=== PATIENT | female | born 1940 | race Caucasian/White ===

== ENCOUNTER 2016-06-01 07:11 | Observation (INO) | payer OTHER ==
[2016-05-18 15:15] VITALS: BMI 35.0
[~2016-06-01] VITALS: Ht 152.4 cm; Wt 86.4 kg
[2016-06-01] VITALS (7 sets, daily range): BP systolic 93–133; BP diastolic 60–86; PULSE 55–107; TEMP 36.4–36.7; O2SAT 95–97; Ht 152.4 cm; Wt 86.4 kg
[~2016-06-01 07:11] MED LIST: ASPI325T39 PO; CLINDAMYCIN 600 MG/54 ML D5W IV SCH; DEXL60CA4 PO; LACTATED RINGER'S 1000ML 1,000 ML IV SCH; OXYB5TAB74 PO; PREGABALIN 75 MG CAP PO SCH; SERT25TA PO
[2016-06-01] MEDS ORDERED: ONDANSETRON INJ 2 MG/ML 2 ML VIAL ONE (08:30)
[2016-06-01] MEDS ORDERED: ROCURONIUM BROMIDE 10 MG/ML 5 ML VIAL ONE (08:30)
[2016-06-01] MEDS ORDERED: GLYCOPYRROLATE INJ 0.2 MG/ML VIAL ONE (08:30)
[2016-06-01] MEDS ORDERED: NEOSTIGMINE METHYLSULFATE 5 MG/5 ML SYR ONE (08:30)
[2016-06-01] MEDS ORDERED: LIDOCAINE HCL 2% 2 ML VIAL (20MG/ML) ONE (08:30)
[2016-06-01] MEDS ORDERED: PROPOFOL IV EMULSION 10 MG/ML 20 ML VIAL IV ONE (08:30)
[2016-06-01] MEDS ORDERED: DEXAMETHASONE SOD INJ 4 MG/ML VIAL ONE (08:30)
[2016-06-01] MEDS ORDERED: FENTANYL CITRATE INJ 50 MCG/1 ML 2 ML VIAL ONE (08:30)
[2016-06-01] MEDS ORDERED: MIDAZOLAM HCL 1 MG/ML 2ML VIAL ONE (08:30)
[2016-06-01] MEDS ORDERED: METOPROLOL TARTRATE 1 MG/ML VIAL ONE ×2 (08:40→08:41)
[2016-06-01] MEDS ORDERED: NURSING VERBAL MED ORDER ONE ×3 (08:46→18:30)
--- NOTE | 2016-06-01 09:03 | Anesthesiology Progress Note ---
Anesthesia Progress Note Date of Service Jun 01, 2016. Progress Notes The patient is a 76F, who was coming in for a L4-S1 decompression/fusion with Dr. Carr. Upon admission, it was noted that patient was tachycardic on the monitor. A 12 lead EKG was ordered which showed afib with RVR at a rate of 144 bpm. The pt is asymptomatic denying CP, SOB, or lightheadedness. I spoke with Dr. Carr and informed him that the procedure would need to be postponed. I spoke with Dr. Cullen and Dr. Arreguin in regards to the patient. The patient will be admitted to the hospital, and her atrial fibrillation will be addressed. I spoke with the patient and her family concerning the matter, and they were understanding.
[2016-06-01] MEDS ORDERED: METOPROLOL TARTRATE 25 MG TAB ONE (09:14)
[2016-06-01] MEDS ORDERED: ACETAMINOPHEN 325 MG TAB PO PRN (09:30)
[2016-06-01] MEDS ORDERED: METOPROLOL TARTRATE 1 MG/ML VIAL IV PRN (09:30)
[2016-06-01] MEDS ORDERED: ONDANSETRON INJ 2 MG/ML 2 ML VIAL IV PRN (09:30)
[2016-06-01] MEDS ORDERED: NITROGLYCERIN 0.4 MG SL PER TAB CHARGE SL PRN (09:30)
[2016-06-01] MEDS ORDERED: SODIUM CHLORIDE 0.9% 1000ML 1,000 ML IV SCH (09:30)
[2016-06-01] MEDS ORDERED: METOPROLOL TARTRATE 25 MG TAB PO ONE (10:00)
[2016-06-01] MEDS ORDERED: IV FLUIDS COMPLETED PRN (10:00)
[2016-06-01 10:18] LABS: BASO % 0.4 %; BASO ABS # 0.03 K/uL (0-0.2); COMPLETE YES; EOS % 1.5 %; HEMATOCRIT 41.5 % (37-47); IG% 0.1 %; LYMPH ABS # 2.69 K/uL (1.2-3.4); MEAN CELL VOLUME 87.2 fL (80-100); MEAN CORPUSCULAR HEMOGLOBIN 29.2 pg (25-34); MEAN CORPUSCULAR HGB CONC 33.5 g/dl (32-36); MEAN PLATELET VOLUME 11.7 fL (7.4-10.4); MONO % 10.9 %; NEUT % 48.1 %; PLATELET COUNT 206 K/uL (130-400); RED BLOOD COUNT 4.76 M/uL (4.2-5.4); WHITE BLOOD COUNT 6.89 K/uL (4.8-10.8)
--- NOTE | 2016-06-01 10:18 | DIAGNOSTIC IMAGING REPORT ---
CHEST ONE VIEW PORTABLE HISTORY: Atrial fibrillation. COMPARISON: None. FINDINGS: There are low lung volumes. The cardiac silhouette is mildly enlarged. Diffuse interstitial and vascular thickening consistent with mild pulmonary edema. No pleural effusions at this time. No pneumothorax. IMPRESSION: Mild pulmonary edema with mild cardiomegaly. Electronically signed by: Geovani Roldan M.D. 06/01/2016 10:16 AM Dictated Date/Time: 06/01/2016 10:15 AM
--- NOTE | 2016-06-01 10:23 | CARDIOLOGY CONSULTATION ---
DATE OF CONSULTATION: 06/01/2016 DATE OF CONSULTATION: 06/01/2016. CONSULTING PHYSICIAN: Dr. Richardson Giron. REASON FOR CONSULTATION: Atrial fibrillation with rapid ventricular response. HISTORY OF PRESENT ILLNESS: is a very pleasant 76-year-old female with a history significant for paroxysmal atrial fibrillation diagnosed in 2010, who presented for outpatient elective spinal stenosis surgery scheduled with Dr. Carr. While in the preoperative holding area she was noted to be in atrial fibrillation with rapid ventricular response. She was completely asymptomatic. She states that in 2010, she woke up in the middle of the night with jaw pain, diaphoresis and went to the Emergency Department and was found to be in Afib with RVR. She was given some type of medication and stayed overnight at [facility]. She converted without electrical cardioversion and had a stress test before discharge. She states that these studies were normal and she has not followed with cardiology since then. She was placed on aspirin at that time. She had a preoperative ECG done earlier this month which demonstrated sinus rhythm. Other than feeling anxious all night with very little sleep in anticipation of her surgery, she has not had any other symptoms such as palpitations, chest pain, shortness of breath, syncope, near syncope, diaphoresis, fevers, chills, abdominal pain, nausea, vomiting, or bleeding such as melena, hematochezia or hematuria. She is completely unaware of her current heart rate or arrhythmia. Her symptoms from spinal stenosis include radiculopathy. It is difficult for her to ambulate in her own home and it is negatively impacting her quality of life. She had an echocardiogram done in 2010, but does not recall having one since then. She does not take any rate controlling medications or antihypertensive medications as she has no history of hypertension according to records. REVIEW OF SYSTEMS: As above and review of systems otherwise negative. PAST MEDICAL HISTORY: 1. Paroxysmal atrial fibrillation in 2010. 2. Depression. 3. Acid reflux. 4. Osteoporosis. 5. Gastric ulcer. 6. Spinal stenosis with radiculopathy. 7. Osteoarthritis. 8. Status post hysterectomy. 9. Status post bladder mesh surgery. 10. Left carpal tunnel release. 11. Left foot surgery x3. 12. Right shoulder surgery, rotator cuff repair. 13. Colonoscopy. 14. Rectocele repair 2008 with mesh and then later removed. 15. . 16. Laparoscopic cholecystectomy. 17. D\T\C. 18. Status post appendectomy during . INPATIENT MEDICATIONS: Include aspirin 325 mg daily, Aleve 220 mg twice daily, Dexilant 60 mg daily, oxybutynin, sertraline 25 mg daily. ALLERGIES: INCLUDE IODINE, KERATIN, PENICILLIN, SULFA, THERE IS ALSO AN INTOLERANCE TO HIGH DOSE NEURONTIN. One record also indicates Lipitor, however she did not state this. SOCIAL HISTORY: Denies tobacco or drug abuse. Rare alcohol. She is a x2. She had 4 children, but 2 of her children have since . Her son and daughter are present at the bedside. She does have grandchildren. She lives alone in [place]. FAMILY HISTORY: There is premature CAD, including her son who with an NV under the age of 55. She also has a sister with NV. Father had cardiovascular disease. Mother had cancer. PHYSICAL EXAMINATION: VITAL SIGNS: Temperature 36.7 degrees, heart rate in the 130s, respiration rate 18, blood pressure 107/65 mmHg, oxygen saturation 94% on room air. GENERAL: In no acute distress, alert and oriented. HEAD, EYES, EARS, NOSE, AND THROAT: Anicteric sclerae. NECK: No appreciable JVD. No bruits. Normal carotid upstrokes bilaterally. CARDIAC EXAMINATION: PMI was nonpalpable. There was no ventricular heave. Irregularly irregular and tachycardic. Normal S1, S2. No audible murmurs, rubs or gallops. LUNGS: Rales at the right base, otherwise clear. ABDOMEN: Soft, nontender, nondistended, normoactive bowel sounds, no bruits noted. EXTREMITIES: No cyanosis or edema. 2+ radial pulses bilaterally. 1+ dorsalis pedis pulses bilaterally. No palpable cords. PSYCHIATRIC: Affect appears appropriate. INPATIENT MEDICATIONS that she has received thus far metoprolol 2.5 mg IV according to nursing staff. Chest x-ray preliminarily personally reviewed. There did appear to be increased vasculature. No obvious infiltrate. The radiology read is pending. LABORATORY DATA: Pending. ECG personally reviewed performed earlier today demonstrating atrial fibrillation at 144 beats per minute. PVC versus aberrantly conducted complex. Nonspecific ST/T-wave abnormality. Preoperative ECG was also personally reviewed from 05/16/2016. This demonstrates normal sinus rhythm at 65 beats per minute. Possible LVH. ASSESSMENT AND PLAN: 1. Atrial fibrillation with rapid ventricular response: She is completely asymptomatic. Recommend 25 mg p.o. metoprolol now and then b.i.d. This can be titrated as appropriate. Recommend IV metoprolol 5 mg now to see if we have adequate rate control response. If beta rand does not adequately rate control, would then consider diltiazem drip while titrating oral beta rand. We had a long discussion regarding atrial fibrillation and treatment strategies. We will first attempt to rate control strategy. She may spontaneously convert as she has in the past. Recommend echocardiogram, TSH, magnesium level, potassium level, CBC and other routine labs. Recommend anticoagulation for stroke risk reduction as she does have an elevated CHADS-VASc score. Risks and benefits of anticoagulation were discussed with her. Would use heparin drip while hospitalized. She can then decide on other anticoagulation upon discharge following echocardiogram, although there are no findings on exam to suggest significant valvular heart disease. 2. Spinal stenosis: Recommend heparin drip while hospitalized. If she spontaneously converts or becomes rate controlled and there is availability during hospitalization for her surgery, it then could be done if Dr. Carr's schedule allows for this. Otherwise, would discharge on anticoagulation, which would have to be held for upcoming spinal stenosis surgery. 3. Disposition: Plan of care has been discussed with Stephany Snowden PA-C of the hospitalist service who is currently doing the admission. Any questions were answered. The patient's care was also discussed with Dr. Giron, the consulting physician. Thank for allowing me to participate in care of Ms. Afshan Lynch.
[2016-06-01 10:26] LABS: PARTIAL THROMBOPLASTIN RATIO 1.1; PROTHROMBIN TIME (PATIENT) 10.7 SECONDS (9.0-12.0)
[2016-06-01 11:00] LABS: BUN/CREATININE RATIO 28.2 (10-20); CALCIUM 9.1 mg/dl (8.5-10.1); CREATININE 0.79 mg/dl (0.60-1.20); MAGNESIUM 2.3 mg/dl (1.8-2.4); POTASSIUM 3.7 mmol/L (3.5-5.1)
[2016-06-01 11:11] LABS: THYROID STIMULATING HORMONE 0.945 uIu/ml (0.300-4.500)
--- NOTE | 2016-06-01 11:16 | History and Physical ---
History & Physical Date & Time of Service: Jun 01, 2016 at 10:58 Chief Complaint: Spinal Stenosis Primary Care Physician: Roshan Tello D.O. History of Present Illness Source: patient, family, other This patient is a pleasant 76-year-old female that presents to the hospital this morning to undergo a spinal fusion with Dr. Carr. During her preoperative testing, the patient was noted to be in A. fib with rapid ventricular response in the 140s. Blood pressure was fairly stable. The patient does note that she has a history of paroxysmal atrial fibrillation. This was first noticed in 2010. She typically takes aspirin 325 mg daily. She denies being on any other long-standing anticoagulation. She denies being symptomatic from her current heart arrhythmia. She denies any heart palpitations. No heart racing, chest pain, chest pressure, shortness of breath or dizziness. She does note that she felt very anxious and did not sleep well last night. She denies any recent illnesses. She reports eating and drinking normally over the last several days. No GI illnesses. She denies any significant caffeine use, alcohol use or tobacco use. Past Medical/Surgical History Paroxysmal A. fib Depression GERD Gastric ulcer Status post bladder mesh surgery History of right rotator cuff surgery History of History of cholecystectomy History of appendectomy Family History Patient had a son that in his 40s from an CO Sister in her 70s of an CO Father of coronary disease Social History Smoking Status: Never Smoker Alcohol Use: none Marital Status: Housing status: lives alone Occupational Status: retired Allergies Coded Allergies: Penicillins (Verified Allergy, Mild, RASH, 06/01/16) Sulfa Antibiotics (Verified Allergy, Mild, RED RASH, 06/01/16) Iodine (Unverified Allergy, Unknown, unknown, 06/01/16) per surgeon's allergy list; please verify with pt Gabapentin (Verified Adverse Reaction, Mild, CONFUSION, 06/01/16) Home Medications Scheduled Aspirin (Aspirin Ec), 325 MG PO QAM Dexlansoprazole (Dexilant), 60 MG PO QAM Oxybutynin Chloride (Ditropan), 5 MG PO QAM Sertraline Hcl (Zoloft), 25 MG PO QAM Review of Systems 10 system review performed and negative unless noted in HPI or below Physical Exam Vital Signs Date Time Temp Pulse Resp B/P Pulse Ox O2 Delivery O2 Flow Rate FiO2 1/25/17 09:57 127 20 97/59 94 Room Air 06/01/16 09:56 114 16 96/80 95 Room Air 06/01/16 09:45 120 18 77/53 96 Room Air 06/01/16 09:35 139 18 126/84 95 Room Air 06/01/16 09:25 115 18 130/87 95 Room Air 06/01/16 09:15 159 18 117/101 96 Room Air 06/01/16 09:05 94 18 107/65 94 Room Air 06/01/16 08:55 132 16 124/73 95 Room Air 06/01/16 08:50 117 14 99/62 94 Room Air 06/01/16 08:46 126 16 94/59 94 Room Air 06/01/16 08:41 152 16 111/81 95 Room Air 06/01/16 08:00 36.7 106 20 133/84 96 Room Air General Appearance: no apparent distress Head: atraumatic Eyes: EOMI Neck: no JVD Respiratory/Chest: lungs clear Cardiovascular: + tachycardia, + irregularly irregular Abdomen/GI: normal bowel sounds, non tender, soft Extremities/Musculoskelatal: no calf tenderness, no pedal edema Neurologic/Psych: no motor/sensory deficits, oriented x 3 Diagnostics Laboratory Results Results Past 24 Hours Test 06/01/16 09:23 06/01/16 09:54 Range/Units White Blood Count 6.89 4.8-10.8 K/uL Red Blood Count 4.76 4.2-5.4 M/uL Hemoglobin 13.9 12.0-16.0 g/dL Hematocrit 41.5 37-47 % Mean Corpuscular Volume 87.2 80-100 fL Mean Corpuscular Hemoglobin 29.2 25-34 pg Mean Corpuscular Hemoglobin Concent 33.5 32-36 g/dl Platelet Count 206 130-400 K/uL Mean Platelet Volume 11.7 7.4-10.4 fL Neutrophils (%) (Auto) 48.1 % Lymphocytes (%) (Auto) 39.0 % Monocytes (%) (Auto) 10.9 % Eosinophils (%) (Auto) 1.5 % Basophils (%) (Auto) 0.4 % Neutrophils # (Auto) 3.31 1.4-6.5 K/uL Lymphocytes # (Auto) 2.69 1.2-3.4 K/uL Monocytes # (Auto) 0.75 0.11-0.59 K/uL Eosinophils # (Auto) 0.10 0-0.5 K/uL Basophils # (Auto) 0.03 0-0.2 K/uL RDW Standard Deviation 46.2 36.4-46.3 fL RDW Coefficient of Variation 14.4 11.5-14.5 % Immature Granulocyte % (Auto) 0.1 % Immature Granulocyte # (Auto) 0.01 0.00-0.02 K/uL Prothrombin Time 10.7 9.0-12.0 SECONDS Prothromb Time International Ratio 1.0 0.9-1.1 Activated Partial Thromboplast Time 28.6 21.0-31.0 SECONDS Partial Thromboplastin Ratio 1.1 EKG Atrial fibrillation with RVR [address] depression noted in the inferior/anterior leads Impression Assessment and Plan 76-year-old female with a history of paroxysmal A. fib presented to the hospital today with anticipation of her spinal fusion. Unfortunately, she was found to be in A. fib with RVR-asymptomatic Atrial fibrillation with RVR -Observe in telemetry -try metoprolol 5 mg IV q 6 hrs for HR> 90--> if poor response, consider starting a Cardizem drip -Check echo -Trend cardiac enzymes -Gentle IV hydration with NS @ 80 cc/hr x 1 liter -CBC, CMP, TSH, mag, coags -CXR -begin heparin drip -Recommend long-term anticoagulation. This may be held for now with the hopes that the patient can still undergo spinal surgery if we get her rate under control -cardiology consult -ortho will be made aware GERD/hx gastric ulcer -Pantoprazole 40 mg daily while in-house -Upon discharge, please resume patient's outpatient's Dexilant -monitor closely for signs of GIB when we start correction AC--no NSAIDS Depression -Continue sertraline 25 mg daily History of urge incontinence -Continue Ditropan 5 mg daily DVT prophylaxis -Heparin -TEDS, SCDs CODE STATUS -LEVEL I FULL CODE I agree with PA assessment and plan and have seen and examined the pt myself Pt presented for lumbar spinal fusion but found to be in Afib with RVR Asymptomatic at this time Will utilize metoprolol and hep drip Advanced Directives Existing Advance Directive: Yes Existing Living Will: Yes Existing Power of Violin Repairer: Yes VTE Prophylaxis VTE Risk Assessment Done? Y/N: Yes Risk Level: Moderate Given or contraindicated: Other Anticoagulation, T.E.D. Stockings, SCD's
[2016-06-01] MEDS ORDERED: PERFLUTREN LIPID MICROSPHERE (DEFINITY) IV ONE (12:25)
[2016-06-01] MEDS ORDERED: HEPARIN 25,000 UNIT/500ML D5W 500 ML IV PRN (12:30)
[2016-06-01] MEDS ORDERED: METOPROLOL TARTRATE 50 MG TAB PO ONE (16:00)
[2016-06-01 19:36] LABS: PARTIAL THROMBOPLASTIN RATIO 1.7
[2016-06-01] MEDS: METOPROLOL TARTRATE 25 MG TAB PO SCH (20:28)
[2016-06-01 20:43] LABS: URINE APPEARANCE CLEAR (CLEAR); URINE BILIRUBIN NEG (NEG); URINE COLOR YELLOW; URINE NITRITE NEG (NEG); URINE SPECIFIC GRAVITY 1.027 (1.000-1.030); UROBILINOGEN NEG (NEG)
[2016-06-01 20:44] LABS: MANUAL MICROSCOPIC REQUIRED? NO; REVIEW REQ? NO
[2016-06-01] MEDS ORDERED: HEPARIN IV BOLUS 2,000 UNIT in SYRINGE 0 ML IV ONE (20:45)
[2016-06-01] MEDS ORDERED: METOPROLOL TARTRATE 50 MG TAB PO SCH (22:00)
[2016-06-02 02:53] LABS: PARTIAL THROMBOPLASTIN RATIO 2.9
[2016-06-02 03:59] VITALS: BP 100/65; PULSE 58; TEMP 36.5; O2SAT 95
[2016-06-02 06:45] LABS: BASO % 0.4 %; BASO ABS # 0.03 K/uL (0-0.2); COMPLETE YES; EOS % 3.1 %; HEMATOCRIT 36.3 % (37-47); IG% 0.3 %; LYMPH ABS # 3.15 K/uL (1.2-3.4); MEAN CELL VOLUME 88.5 fL (80-100); MEAN CORPUSCULAR HEMOGLOBIN 28.8 pg (25-34); MEAN CORPUSCULAR HGB CONC 32.5 g/dl (32-36); MEAN PLATELET VOLUME 11.5 fL (7.4-10.4); MONO % 9.9 %; NEUT % 42.3 %; PLATELET COUNT 183 K/uL (130-400); WHITE BLOOD COUNT 7.16 K/uL (4.8-10.8)
[2016-06-02 07:00] LABS: PARTIAL THROMBOPLASTIN RATIO 2.5
[2016-06-02 07:11] LABS: CALCIUM 8.3 mg/dl (8.5-10.1); CREATININE 0.84 mg/dl (0.60-1.20); POTASSIUM 3.6 mmol/L (3.5-5.1)
[2016-06-02 07:28] VITALS: BP 100/61; PULSE 55; TEMP 36.7; O2SAT 93
[2016-06-02] MEDS: METOPROLOL TARTRATE 25 MG TAB PO SCH (07:53)
[2016-06-02 07:54] VITALS: PULSE 62
[2016-06-02] MEDS ORDERED: SERTRALINE HCL 50 MG TAB PO SCH (09:00)
[2016-06-02] MEDS ORDERED: OXYBUTYNIN CHLORIDE 5 MG TAB PO SCH (09:00)
[2016-06-02] MEDS ORDERED: PANTOprazole SOD 40 MG TAB PO SCH (09:00)
--- NOTE | 2016-06-02 09:41 | CARDIOLOGY PROGRESS NOTE ---
DATE: 06/02/2016 TIME: 9:21 a.m. SUBJECTIVE: She denies chest pain, shortness of breath, syncope, near syncope, palpitations. She converted to sinus rhythm yesterday evening. She is tolerating beta rand therapy. OBJECTIVE: VITAL SIGNS: Temperature 36.7 degrees, heart rate 62 beats per minute, respiration rate 18, blood pressure 100/61 mmHg, oxygen saturation 93% on room air. I's and O's positive 1.27 liters yesterday. Weight is 86.4 kg. GENERAL: No acute distress. She is alert. NECK: No JVD. CARDIAC: No ventricular heave. Regular, normal S1, S2. No murmurs, rubs, or gallops. LUNGS: Bibasilar rales which do improve with coughing. ABDOMEN: Soft, nontender, nondistended. Normoactive bowel sounds. EXTREMITIES: No cyanosis, no pitting edema. Distal pulses intact. PSYCHIATRIC: Affect appears appropriate. MEDICATIONS: Include heparin drip per protocol, metoprolol tartrate 25 mg twice daily, Protonix 40 mg daily, Zoloft 25 mg daily. Echocardiogram images yesterday were personally reviewed. Normal LV systolic function. No significant valvular abnormalities. IMAGING DATA: Chest x-ray report from yesterday per radiology diffuse interstitial and vascular thickening. DATA: White blood cell count 7.16, hemoglobin 11.8, platelets 183, sodium 145, potassium 3.6, BUN 22, creatinine 0.8, magnesium 2. TSH 0.945. PTT 63.8. Telemetry personally reviewed. Remains in sinus rhythm. ECG performed this morning at 6:39 a.m. personally reviewed. Sinus bradycardia at 56 beats per minute. Possible LVH by voltage criteria. Compared to yesterday's ECG, sinus rhythm has replaced AFib with RVR. Heart rate has decreased by 88 beats per minute. ASSESSMENT AND PLAN: 1. Paroxysmal atrial fibrillation with rapid ventricular response: She was asymptomatic and has spontaneously converted. We would continue metoprolol tartrate 25 mg twice daily for rate control strategy. If she has frequent recurrent episodes, would consider antiarrhythmic therapy. She does have an elevated stroke risk and therefore recommend anticoagulation. This was discussed with primary service, SHARAD Sauceda. Caseworkers can look into her insurance company to see affordable option. If her spinal surgery is going to occur in the next few days, may want to delay anticoagulation until following surgery depending on the timing of surgery as any anticoagulant also need to be held for the surgery. 2. Rales on exam: Etiology uncertain. She does not appear to be hypervolemic. She does not appear to be in heart failure. She does have interstitial findings on chest x-ray. This can be followed up as an outpatient with her PCP. 3. Spinal stenosis: Timing of surgery is still pending. Plan as above. We would recommend remaining on her beta rand therapy and during the perioperative period, including the day of surgery. Obviously, anticoagulation therapy can be held in anticipation of surgery and restarted when safe from a surgical standpoint. 4. Disposition: From a cardiac perspective, no further testing or treatment necessary as an inpatient. It was recommended to the primary service and also the patient that she followup with cardiology as an outpatient. She does live quite a distance from the [facility] and has seen cardiology in the past in her local area. It was recommended that she followup. Plan of care discussed with Stephany Snowden of the hospitalist service. Thank you for allowing us to participate in care of Ms. Lynch.
[2016-06-02 09:55] LABS: PARTIAL THROMBOPLASTIN RATIO 2.2
[2016-06-02 11:22] VITALS: BP_SYST 100; BP_SYST 97; BP_DIAS 54; BP_DIAS 61; PULSE 53; PULSE 55; TEMP 36.5; TEMP 36.7; O2SAT 93; O2SAT 96
[2016-06-02] MEDS ORDERED: ELQ25 PO (14:09)
[2016-06-02] MEDS ORDERED: LPR25 PO (14:09)
--- NOTE | 2016-06-02 14:13 | Discharge Instructions ---
Discharge Instructions Admission Reason for Admission: Spinal Stenosis Discharge Discharge Diagnosis / Problem: Atrial fibrillation with RVR Discharge Goals Goal(s): Decrease discomfort, Improve function, Increase independence, Improve disease control Activity Recommendations Activity Limitations: resume your previous activity Shower/Bathe: no limitations . Instructions / Follow-Up Instructions / Follow-Up patient to be discharged home patient to start on metoprolol 25 mg twice a day and eliquis 2.5 twice a day please do not start taking eliquis or aspirin until cleared from surgery Current Hospital Diet Patient's current hospital diet: AHA Diet (Heart Healthy) Discharge Diet Recommended Diet: AHA Diet (Heart Healthy) Pending Studies Studies pending at discharge: no Medical Emergencies . Who to Call and When: Medical Emergencies: If at any time you feel your situation is an emergency, please call 911 immediately. . Non-Emergent Contact Non-Emergency issues call your: Primary Care Provider Call Non-Emergent contact if: you have a fever . . "Provider Documentation" section prepared by Michael Gauthier. VTE Core Measure Inpt VTE Proph given/why not?: Other Anticoagulation, T.E.D. Stockings, SCD's
--- NOTE | 2016-06-02 14:27 | ECHOCARDIOGRAM REPORT ---
*NOTICE TO RECEIVING [employer] This information is strictly Confidential and protected under [place] law. [place] law prohibits you from making any further disclosure of this information unless further disclosure is expressly permitted by the written consent of the person to whom it pertains or is authorized by law. A general authorization for the release of medical or other information is not sufficient for this purpose. Hospital accepts no responsibility if the information is made available to any other person, INCLUDING THE PATIENT. Interpretation Summary * Name: ABHISHEK REGALADO Study Date: 06/01/2016 12:45 PM BP: 111/71 mmHg * Patient Location: [facility] HR: 125 * : 1940 (M/d/yyyy) Gender: Female Height: 60 in * Age: 76 yrs Ethnicity: CA Weight: 180 lb * Ordering Physician: Stephany Snowden * Performed By: Neva Perales RCS * * Reason For Study: A-FIB * BSA: 1.8 m2 * -- Conclusions -- * 1. Normal left ventricular size and systolic function. Estimated EF 55-60%. No regional wall motion abnormalities. Mild to moderate concentric left ventricular hypertrophy. * 2. The left atrium is mildly dilated. * 3. No significant valvular abnormalities. * 4. Rhythm is atrial fibrillation with rapid ventricular response. * 5. Technically difficult study, enhanced with IV Definity. * 6. No prior study available for comparison. Procedure Details * A complete two-dimensional transthoracic echocardiogram was performed (2D, M-mode, Doppler and color flow Doppler). * A contrast injection of Definity was performed to improve assessment of LV function. * Contrast was injected into an intravenous site in the left arm. * One vial of Definity ultrasound contrast was diluted in normal saline to a total volume of 10 ml. A total of '2' ml of solution was administered during imaging. * Lot # [id number] of Definity utilized for procedure. * Expiration date 1 APR 23. Left Ventricle * Normal left ventricular size and systolic function. Estimated EF 55-60%. No regional wall motion abnormalities. Mild to moderate concentric left ventricular hypertrophy. Right Ventricle * The right ventricle is grossly normal size. * The right ventricle is not well visualized. * The right ventricular systolic function is normal. * The right ventricular systolic function is normal as assessed by tricuspid annular plane systolic excursion (TAPSE) (normal >1.5 cm). Atria * The left atrium is mildly dilated. * Right atrium not well visualized. * There is no evidence of atrial septal defect, but resolution does not allow assessment for a patent foramen ovale. Mitral Valve * The mitral valve is grossly normal. * There is no mitral valve stenosis. * There is trace mitral regurgitation. Tricuspid Valve * The tricuspid valve is not well visualized. * There is no tricuspid stenosis. * There is mild tricuspid regurgitation. Aortic Valve * The aortic valve is trileaflet. * The aortic valve is normal in structure and function. * No hemodynamically significant valvular aortic stenosis. * There is no significant aortic regurgitation. Pulmonic Valve * The pulmonary valve is inadequately visualized, but the Doppler data is adequate for interpretation. * There is no pulmonic valvular stenosis. * There is no significant pulmonary regurgitation. Great Vessels * The aortic root is normal size. * Aortic arch of normal dimension. Pericardium/Pleural * There is no pericardial effusion. Great Vessels * IVC not well visualized. MMode 2D Measurements and Calculations IVSd 1.4 cm IVSs 1.5 cm LVIDd 3.4 cm LVIDs 2.2 cm LVPWd 1.3 cm LVPWs 1.5 cm IVS/LVPW 1.1 FS 35.6 % EDV(Teich) 46.5 ml ESV(Teich) 15.7 ml EF(Teich) 66.3 % EDV(cubed) 38.3 ml ESV(cubed) 10.2 ml EF(cubed) 73.3 % % IVS thick 12.9 % % LVPW thick 14.7 % LV mass(C)d 149.7 grams LV mass(C)dI 83.9 grams/m\S\2 LV mass(C)s 107.6 grams LV mass(C)sI 60.3 grams/m\S\2 SV(Teich) 30.8 ml SI(Teich) 17.3 ml/m\S\2 SV(cubed) 28.1 ml SI(cubed) 15.7 ml/m\S\2 Ao root diam 3.6 cm Ao root area 9.9 cm\S\2 ACS 1.8 cm LA dimension 3.7 cm LA/Ao 1.1 LVOT diam 1.9 cm LVOT area 3.0 cm\S\2 LVAd ap4 25.1 cm\S\2 LVLd ap4 6.9 cm EDV(MOD-sp4) 75.2 ml EDV(sp4-el) 77.7 ml LVAd ap2 24.3 cm\S\2 LVLd ap2 7.0 cm EDV(MOD-sp2) 71.3 ml EDV(sp2-el) 71.4 ml LVAs ap2 14.7 cm\S\2 LVLs ap2 5.8 cm ESV(MOD-sp2) 33.2 ml ESV(sp2-el) 32.0 ml EF(MOD-sp2) 53.4 % EF(sp2-el) 55.2 % LVLd %diff 2.0 % EDV(MOD-bp) 73.3 ml SV(MOD-sp2) 38.1 ml SI(MOD-sp2) 21.3 ml/m\S\2 SV(sp2-el) 39.4 ml SI(sp2-el) 22.1 ml/m\S\2 Doppler Measurements and Calculations MV E max yue 78.7 cm/sec MV P1/2t max yue 113.0 cm/sec MV P1/2t 25.8 msec MVA(P1/2t) 8.5 cm\S\2 MV dec slope 1284.6 cm/sec\S\2 MV dec time 0.13 sec Ao V2 max 84.7 cm/sec Ao max PG 2.9 mmHg Ao max PG (full) 1.5 mmHg TEMO(V,A) 2.0 cm\S\2 TEMO(V,D) 2.0 cm\S\2 LV V1 max PG 1.4 mmHg LV V1 max 58.2 cm/sec TR max yue 228.3 cm/sec
[2016-06-02 14:39] VITALS: BP 97/54; PULSE 53; TEMP 36.5; O2SAT 96
--- NOTE | 2016-06-02 15:27 | Discharge Summary ---
Discharge Summary Admission Date: Jun 01, 2016 at 09:29 Discharge Date: Jun 02, 2016 Discharge Disposition: Home Principal Diagnosis: Atrial fibrillation with RVR Consultations: Cardiology Medication Reconciliation New Medications: Apixaban (Eliquis) 2.5 Mg Tab 2.5 MG PO BID for 30 Days, #60 TABS Please dont start taking until cleared from surgery Metoprolol Tartrate (Lopressor) 25 Mg Tab 25 MG PO BID for 30 Days, #60 TAB Continued Medications: Dexlansoprazole (Dexilant) 60 Mg Cap 60 MG PO QAM Oxybutynin Chloride (Ditropan) 5 Mg Tab 5 MG PO QAM, TAB Sertraline Hcl (Zoloft) 25 Mg Tab 25 MG PO QAM for Anxiety, TAB Discontinued Medications: Aspirin (Aspirin Ec) 325 Mg Tab 325 MG PO QAM HOLD 7 DAYS Discharge Exam Review of Systems: Constitutional: No chills, No fever Respiratory: No cough, No sputum Cardiovascular: No chest pain, No orthopnea Abdomen: No nausea, No pain, No vomiting Musculoskeletal: No joint pain, No muscle pain Genitourinary - Female: No dysuria, No urinary frequency Neurologic: No paralysis, No weakness Physical Exam: General Appearance: WD/WN, no apparent distress Eyes: normal inspection, PERRL Neck: supple, no adenopathy Respiratory/Chest: chest non-tender, lungs clear Cardiovascular: regular rate, rhythm, no edema, no gallop Abdomen / GI: non tender, soft Neurologic/Psychiatric: alert, oriented x 3 Hospital Course 76-year-old female with a history of paroxysmal A. fib presented to the hospital today with anticipation of her spinal fusion. Unfortunately, she was found to be in A. fib with RVR-asymptomatic Atrial fibrillation with RVR -Observed in telemetry -Converted to NSR on metroprolol -Echo - Normal left ventricular size and systolic function. Estimated EF 55-60% . No regional wall motion abnormalities. Mild to moderate concentric left ventricular hypertrophy. -Cardiac enzymes unremarkable -Gentle IV hydration with NS @ 80 cc/hr x 1 liter -Recommend long-term anticoagulation. Pt will resume eliquis and ASA after clearance from surgery. Pt will continue on metoprolol GERD/hx gastric ulcer -Pantoprazole 40 mg daily while in-house -Upon discharge, please resume patient's outpatient's Dexilant -monitor closely for signs of GIB when we start retirement AC--no NSAIDS Depression -Continue sertraline 25 mg daily History of urge incontinence -Continue Ditropan 5 mg daily DVT prophylaxis -Heparin -TEDS, SCDs CODE STATUS -LEVEL I FULL CODE Total Time Spent: Greater than 30 minutes This includes examination of the patient, discharge planning, medication reconciliation, and communication with other providers. Discharge Instructions Please refer to the electronic Patient Visit Report (Discharge Instructions) for additional information. Additional Copies To Roshan Tello D.O.
[2016-06-02 16:26] VITALS: BP 128/74; PULSE 55; TEMP 36.6; O2SAT 98
[2016-06-23] MEDS ORDERED: APIX1TAB3 PO (09:51)
[2016-06-23] MEDS ORDERED: METO25TA56 PO (09:51)
== END 2016-06-02 19:01 | disposition home or self-care (01) ==
LOC: ENRESERVDT → ENRESERVTM → C.ACU 07:11 → C.2T 09:29
PROVIDERS: ADMIT Hospitalist; ATTEND Hospitalist
DX: I48.0 Paroxysmal atrial fibrillation (principal); R00.0 Tachycardia, unspecified; F32.9 Major depressive disorder, single episode, unspecified; I51.7 Cardiomegaly; K21.9 Gastro-esophageal reflux disease without esophagitis; M48.00 Spinal stenosis, site unspecified; M81.0 Age-related osteoporosis without current pathological fracture; Z53.09 Procedure and treatment not carried out because of other contraindication

== ENCOUNTER 2016-07-05 06:51 | Inpatient (IN) | payer OTHER ==
[2016-06-23 09:57] VITALS: BMI 35.0
[2016-07-05] VITALS (11 sets, daily range): BP systolic 78–152; BP diastolic 50–75; PULSE 56–75; TEMP 35.7–36.6; O2SAT 91–100; Ht 152.4 cm; Wt 87.2 kg
[~2016-07-05] VITALS: Ht 152.4 cm; Wt 87.2 kg
[~2016-07-05 06:51] MED LIST changes: +APIX1TAB3 PO; -ASPI325T39 PO; -CLINDAMYCIN 600 MG/54 ML D5W IV SCH; +METO25TA56 PO; -PREGABALIN 75 MG CAP PO SCH
[2016-07-05] MEDS ORDERED: FENTANYL CITRATE INJ 50 MCG/1 ML 2 ML VIAL ONE ×3 (09:20→12:13)
[2016-07-05] MEDS ORDERED: MIDAZOLAM HCL 1 MG/ML 2ML VIAL ONE (09:20)
--- NOTE | 2016-07-05 09:39 | History and Physical ---
History & Physical Date Jul 05, 2016. Chief Complaint LBP and neurogenic claudication History of Present Illness The patient is a 76 year old female with complaints of above who has known spinal stenosis, spondylolisthesis in lumbar spine who failed longstanding conservative treatment. Her ability to walk is severely curtailed. she reports subjective numbness in both feet. MRI shows severe stenosis L4-5 with a spondy and L5-S1 facet djd. no weakness or incontinence. positive shopping cart sign. surgery was initially cancelled to due to new onset afib with RVR. she has since been controlled on metoprolol and is on eliquis. cardiology cleared her for surgery and holding of anticoagulation. Past Medical/Surgical History Medical Problems: (1) A-fib 2. GERD 3. PUD 4. osteoporosis 5. OA 6. R TKA 7. rotator cuff repair R 8. skyla 9. appy 10. hyster Additional History Hepatic Disease: No Endocrine Disorder: No Kidney Disease: No Hypertension: No Heart Disease: Yes Bleeding Tendencies: No Infectious Diseases: No Allergies Coded Allergies: Penicillins (Verified Allergy, Mild, RASH, 07/05/16) Sulfa Antibiotics (Verified Allergy, Mild, RED RASH, 07/05/16) Iodine (Unverified Allergy, Unknown, unknown, 07/05/16) per surgeon's allergy list; please verify with pt Gabapentin (Verified Adverse Reaction, Mild, CONFUSION, 07/05/16) Home Medications Scheduled Apixaban (Eliquis), 5 MG PO BID Dexlansoprazole (Dexilant), 60 MG PO QAM Metoprolol Tartrate (Lopressor) (Lopressor), 25 MG PO BID Oxybutynin Chloride (Ditropan), 5 MG PO QAM Sertraline Hcl (Zoloft), 25 MG PO QAM Physical Examination Skin: warm/dry Eyes: normal inspection, sclerae normal ENT: normal ENT inspection Head: normocephalic, atraumatic Neck: supple, trachea midline Respiratory/Chest: lungs clear, no respiratory distress Cardiovascular: regular rate, rhythm Back: normal inspection Extremities: normal inspection, normal range of motion Neurologic/Psych: no motor/sensory deficits, alert, normal reflexes, oriented x 3 Diagnosis L4-S1 stenosis, degen spondy gr I L4-5 Plan of Treatment L4-S1 decompression/fusion, eliquis held >48h per cards
[2016-07-05] MEDS ORDERED: CLINDAMYCIN 600 MG/54 ML D5W IV ONE (09:47)
[2016-07-05] MEDS ORDERED: THROMBIN FOR SOLN 20000 UNIT KIT ONE ×2 (09:50→09:51)
[2016-07-05] MEDS ORDERED: HEPARIN SOD (PORCINE) 1000 UNIT/ML 10 ML VIAL ONE (09:51)
[2016-07-05] MEDS ORDERED: BACITRACIN 50000 UNIT VIAL ONE (09:51)
[2016-07-05] MEDS ORDERED: THROMBIN 5000 UNITS KIT ONE (09:51)
[2016-07-05] MEDS ORDERED: BUPIVACAINE/EPINEPHRINE 0.5% MPF 1:200,000 30 ML VIAL ONE (09:51)
[2016-07-05] MEDS ORDERED: HYDROmorphone INJ 2 MG/ML SYR/VIAL ONE (10:30)
[2016-07-05] MEDS ORDERED: HydrALAZINE HCL 20 MG/ML VIAL ONE (11:22)
[2016-07-05] MEDS ORDERED: ONDANSETRON INJ 2 MG/ML 2 ML VIAL ONE (11:22)
[2016-07-05] MEDS ORDERED: NEOSTIGMINE METHYLSULFATE 1 MG/ML 10ML VIAL ONE (11:22)
[2016-07-05] MEDS ORDERED: PROPOFOL IV EMULSION 10 MG/ML 20 ML VIAL IV ONE (11:22)
[2016-07-05] MEDS ORDERED: EpHEDrine SULFATE 50MG/5ML SYR ONE (11:22)
[2016-07-05] MEDS ORDERED: GLYCOPYRROLATE INJ 0.2 MG/ML VIAL ONE (11:22)
[2016-07-05] MEDS ORDERED: DEXAMETHASONE SOD INJ 4 MG/ML VIAL ONE (11:22)
[2016-07-05] MEDS ORDERED: ROCURONIUM BROMIDE 10 MG/ML 5 ML VIAL ONE (11:22)
[2016-07-05] MEDS ORDERED: LIDOCAINE HCL 2% 2 ML VIAL (20MG/ML) ONE (11:22)
--- NOTE | 2016-07-05 11:46 | DIAGNOSTIC IMAGING REPORT ---
Lumbar spine LUMBAR SPINE 2 OR 3 VIEW CLINICAL HISTORY: L4-S1 DECOMPRESSION/FUSION TECHNIQUE: Image intensifier COMPARISON STUDY: None FINDINGS: Posterior fusion L4-L5 and S1. IMPRESSION: Image intensifier used for local lumbosacral spinal fusion Electronically signed by: Mando Coffman M.D. 07/05/2016 11:45 AM Dictated Date/Time: 07/05/2016 11:44 AM
[2016-07-05] MEDS ORDERED: OXYC1TAB3 PO (11:47)
[2016-07-05] MEDS ORDERED: FLOSEAL HEMOSTATIC MATRIX 10ML TOP ONE (11:48)
--- NOTE | 2016-07-05 11:49 | Discharge Instructions ---
Discharge Instructions Admission Reason for Admission: Lumbar Spinal Stenosis Discharge Discharge Diagnosis / Problem: Lumbar Stenosis Discharge Goals Goal(s): Decrease discomfort, Improve function, Increase independence Activity Recommendations Activity Limitations: as noted below Lifting Limitations: no more than 5 pounds Exercise/Sports Limitations: until after follow-up appointment May Resume Sexual Activity: after follow-up appointment Shower/Bathe: may shower/bathe in 3 days . Instructions / Follow-Up Instructions / Follow-Up ACTIVITY RECOMMENDATIONS: SELF CARE INSTRUCTIONS AFTER THORACIC/LUMBAR FUSIONS 1. You may walk to your tolerance. It is good exercise for your legs and back. Expect some back and intermittent leg aches and pains. 2. You may perform "counter-top" level activities (make a sandwich, alesia with a project, etc.). 3. No bending or lifting of more than 10 pounds or back twisting of any nature (roll like a log when turning in bed). 4. You may ride in a car for 20-30 minutes at a time. No driving until after your first visit with your doctor. 5. Frequent changes of position and restricting sitting to 30 minutes at a time will help limit the amount of back spasms and stiffness you may experience. 6. You may discontinue the use of ambulatory aids (cane, crutches, etc.) once your strength and confidence allow. 7. You may farmworker machine the shower and let water strike your incision when you arrive home at least once daily. Do not take a tub bath, sit in a hot tub or go into a swimming pool until after your first recheck in the office. SPECIAL CARE INSTRUCTIONS: VERY IMPORTANT TO READ AND REVIEW A. Your surgical incision has been closed with a cosmetic suture under the skin that will dissolve in about 6 weeks. In 14 days, you can use a pair of clean scissors and cut the suture that is left outside of the skin at the ends of your incision. 1. The small skin tapes can be removed 7 days after surgery if they have not fallen off by that point. 2. You may keep the wound open to air as much as possible to promote healing after post-op day number 5 unless told otherwise by your doctor. 3. If you think the wound looks like it is becoming infected (redness or worsening drainage) and/or you are experiencing fever, chill or worsening back pain and muscle spasms, contact the office so that we may evaluate you as soon as possible. B. Complications are uncommon, but please contact us if you have any signs or symptoms of: 1. wound infection (fever higher than 102.5 degrees F, redness, separation of wound, drainage, or increasing pain from the incision) 2. blood clots in legs (pain, swelling, redness and warmth in legs) 3. urinary tract infection (fever higher than 102.5 degrees F, burning upon urination or increased frequency of urination) 4. nerve problems (inability to walk on your toes or heels, numbness, loss of bowel or bladder control) 5. any other symptoms that concern you C. Please call the office at if you have any concerns or questions about your operation or recovery. D. No smoking! Smoking drastically decreases the chance of a solid fusion. E. Do not take any anti-inflammatory medications (Indocin, Advil, Motrin, Aspirin, Naprosyn, etc.) as these may inhibit the chance of a solid fusion. Tylenol is okay to take for pain. MANAGING PAIN AFTER SPINAL SURGERY 1. Narcotic medication is intended for short-term use and will be provided for surgical pain. Surgical pain usually lasts for a period of 4-6 weeks. Narcotic medication includes Percocet, Vicodin, Darvocet, Tylenol #3 or Lortab. 2. Longer-term pain is more appropriately treated with non-narcotic medication such as Tylenol ES. 3. Muscle spasm is not appropriately treated with narcotics. Muscle relaxers such as Soma, Flexeril or Skelaxin can be used along with Tylenol ES. 4. Remember that we all live with some "aches and pains". This is not unusual or uncommon after an injury or as we get older. a. Back pain is expected and may include muscle spasms for 4 to 6 weeks after surgery. The pain should gradually improve. If the pain worsens for no apparent reason, please contact the office. b. Intermittent leg pain may also be experienced and should not be concerned about unless it worsens for no apparent reason. If so, please contact the office. 5. We will provide appropriate medication within the normal guidelines of their prescribed use. We will also be very cautious and aware of potential abuse and extended duration of patients' medication needs. a. Pain medications are for your comfort and to assist with sleep and rest so that the tissue can heal. They are not provided in order to return to normal activity and should not be used through the day. To do so or worsening pain at night can result from ongoing tissue damage and development of tolerance to the prescribed medicine. 6. Please allow 2-3 days to process refills. Prescriptions will not be mailed but must be picked up at the office. FOLLOW UP VISIT: Keep your scheduled follow-up appointment. Any questions, please call the office at . Current Hospital Diet Patient's current hospital diet: Discharge Diet Recommended Diet: Regular Diet Procedures Procedures Performed: L4-S1 Decompression and Instrumented Fusion; Interbody Fusion at L4-L5; with Arteriocyte Pending Studies Studies pending at discharge: no Medical Emergencies . Who to Call and When: Medical Emergencies: If at any time you feel your situation is an emergency, please call 911 immediately. . Non-Emergent Contact Non-Emergency issues call your: Surgeon Call Non-Emergent contact if: temperature is above 101, your pain is not controlled, your pain is worsening, your pain is unusual for you, your pain is concerning you, wound has increased drainage, wound has increased redness, wound has increased pain, you have any medication questions . "Provider Documentation" section prepared by Alvin Torres. VTE Core Measure Inpt VTE Proph given/why not?: Anand Marquez PA Drug Monitoring Program Search Results: patient reviewed within database, no issues identified
[2016-07-05] MEDS ORDERED: SODIUM CHLORIDE 0.9% 1000ML 1,000 ML IV SCH (12:05)
--- NOTE | 2016-07-05 12:05 | [facility] Post Operative Brief Note ---
Immediate Operative Summary Operative Date Jul 05, 2016. Pre-Operative Diagnosis L4-S1 stenosis, degenerative spondylosis grade I L4-L5. Post-Operative Diagnosis L4-S1 stenosis, degenerative spondylosis grade I L4-L5. Procedure(s) Performed L4-S1 Decompression and Instrumented Fusion; Interbody Fusion at L4-L5; with Arteriocyte Surgeon Dr. Jorden Carr Cargo Checker Surgeon(s) Alvin Torres PA-C Estimated Blood Loss 350mL Findings dict Specimens None per surgeon
[2016-07-05] MEDS ORDERED: MoRPHine SULFATE 1 MG/ML 50 ML PCA CASS ONE (12:09)
[2016-07-05] MEDS ORDERED: FAMOTIDINE 20 MG TAB PO PRN (12:15)
[2016-07-05] MEDS ORDERED: hydrOXYzine HCL 25 MG TAB PO PRN (12:15)
[2016-07-05] MEDS ORDERED: METOCLOPRAMIDE HCL INJ 5 MG/ML 2 ML VIAL IV PRN (12:15)
[2016-07-05] MEDS ORDERED: FENTANYL CITRATE INJ 50 MCG/1 ML 2 ML VIAL IV PRN (12:15)
[2016-07-05] MEDS ORDERED: SOD PHOSPHATE/SOD BIPHOSPHATE ENEMA 132 ML BTL PR PRN (12:15)
[2016-07-05] MEDS ORDERED: ONDANSETRON INJ 2 MG/ML 2 ML VIAL IV PRN ×2 (12:15)
[2016-07-05] MEDS ORDERED: PROMETHAZINE HCL INJ 12.5 MG in SODIUM CHLORIDE 0.9% 50ML 50 ML IV PRN (12:15)
[2016-07-05] MEDS ORDERED: BISACODYL 10 MG SUPP PR PRN (12:15)
[2016-07-05] MEDS ORDERED: NALOXONE HCL 0.4 MG/1 ML VIAL/CARP IV PRN ×2 (12:15)
[2016-07-05] MEDS ORDERED: EpHEDrine SULFATE INJ 50 MG/ML AMP IV PRN (12:15)
[2016-07-05] MEDS ORDERED: ALUMINUM/MAGNESIUM SUSP 30 ML UDC PO PRN (12:15)
[2016-07-05] MEDS ORDERED: LORAZEPAM INJ 0.5 MG in SYRINGE 0.75 ML IV PRN (12:15)
[2016-07-05] MEDS ORDERED: MoRPHine SULFATE 10 MG/ML CARP/VIAL IV PRN (12:15)
[2016-07-05] MEDS ORDERED: ATROPINE SULFATE 0.1 MG/ML 5ML SYR IV PRN (12:15)
[2016-07-05] MEDS ORDERED: MAGNESIUM HYDROXIDE SUSP 30 ML UDC PO PRN (12:15)
[2016-07-05] MEDS ORDERED: LORAZEPAM 0.5 MG TAB PO PRN (12:15)
--- NOTE | 2016-07-05 13:03 | Anesthesiology Progress Note ---
Anesthesia Post Op Note Date & Time Jul 05, 2016 at 13:02 Vital Signs Pain Intensity: 3 Vital Signs Past 12 Hours Date Time Temp Pulse Resp B/P Pulse Ox O2 Delivery O2 Flow Rate FiO2 07/05/16 12:51 36.6 68 16 145/69 94 Nasal Cannula 4 07/05/16 12:39 67 14 07/05/16 12:39 68 14 138/64 96 07/05/16 12:34 71 12 07/05/16 12:34 71 12 170/89 95 07/05/16 12:29 67 8 153/64 97 07/05/16 12:29 66 8 07/05/16 12:24 66 12 144/83 98 07/05/16 12:24 66 12 07/05/16 12:19 68 13 07/05/16 12:19 69 13 164/75 98 07/05/16 12:14 69 13 07/05/16 12:14 69 13 173/76 98 07/05/16 12:09 70 14 07/05/16 12:09 70 14 170/77 98 07/05/16 12:08 71 16 07/05/16 12:08 71 16 98 07/05/16 12:04 117/77 07/05/16 12:03 78 17 07/05/16 12:03 78 17 98 07/05/16 11:59 156/65 07/05/16 11:58 36.1 81 14 169/76 97 Mask 10 07/05/16 11:58 81 17 07/05/16 11:58 81 17 98 07/05/16 08:04 36.4 56 18 152/55 95 Room Air Notes Mental Status: alert / awake / arousable, participated in evaluation Pt Amnestic to Procedure: Yes Nausea / Vomiting: adequately controlled Pain: adequately controlled Airway Patency, RR, SpO2: stable & adequate BP & HR: stable & adequate Hydration State: stable & adequate Anesthetic Complications: no major complications apparent
[2016-07-05] MEDS: SODIUM CHLORIDE 0.9% 1000ML 1,000 ML IV SCH (13:15)
--- NOTE | 2016-07-05 13:39 | OPERATIVE REPORT ---
DATE OF OPERATION: 07/05/2016 PREOPERATIVE DIAGNOSES: 1. Lumbar spinal stenosis L4-L5 and L5-S1. 2. Lumbar facet arthrosis L4-L5 and L5-S1. 3. L4-L5 degenerative spondylolisthesis -- grade 1. POSTOPERATIVE DIAGNOSIS: Same. PROCEDURES: 1. L4 and L5 laminectomies with bilateral L4-L5 and L5-S1 medial facetectomies. 2. Segmental pedicle screw instrumentation -- bilateral L4, L5 and S1 with K2M [place] pedicle screws. 3. Posterolateral fusion L4-S1 -- bilateral with Infuse BMP on a collagen sponge, tricalcium phosphate, local bone, bone putty, bone marrow aspirate. 4. Left L4-L5 transforaminal lumbar interbody fusion with K2M titanium mesh interbody spacer, local bone, bone putty and bone marrow aspirate. 5. Right iliac crest bone marrow aspiration and stem cell concentration and application of bone graft. SURGEON: Dr. Carr. ACCOUNT RESOLUTION SPECIALIST: Alvin Torres PA-C. Please note he participated in all portions of the procedure and was critical for performance of the procedure, participated in positioning, prepping, draping, retraction and wound closure. ANESTHESIA: General endotracheal anesthesia. COMPLICATIONS: None. ESTIMATED BLOOD LOSS: Per anesthesia record. OPERATION AND FINDINGS: PROCEDURE: After identification of patient and operative level, she was brought to the OR where she underwent induction of general anesthesia. She was then positioned prone on [place] OR table with all bony prominences well padded. Care was taken to avoid pressure on the periorbital area. Lumbosacral area was sterilely prepped and draped in usual fashion. Antibiotics were administered. Time-out was performed. Level was confirmed and skin incision was infiltrated with 0.5% Marcaine with epinephrine. I made skin incision from spinous process of L3 to the sacrum. I exposed the posterior elements, placed Gelpi retractors and confirmed level with fluoroscopy and marked the operative levels. I then accomplished midline decompression with removal of the L4 and L5 lamina, takedown ligamentum flavum at L4-L5 and L5-S1, removal of medial facets at L4-L5 and L5-S1 with an osteotome. I completed decompression with Kerrisons and then palpated the nerve roots from L4-S1 were decompressed bilaterally. I then placed pedicle screws bilaterally at L4, L5 and S1 with K2M [place] pedicle screws. I checked position with fluoroscopy. The patient was noted to be mildly osteopenic but I felt screws had acceptable purchase. I then did a complete discectomy from the left at L4-5 and prepared disc spaces with huey and curettes. After preparation of the disc space I used paddle distractors to determine graft size and then filled the titanium mesh cage with local bone, bone putty, bone marrow aspirate and tamped into position. I then lowered the Torrey frame to restore lordosis, applied rods and end caps and final tightening. I aspirated bone marrow from a separate stab incision the right side iliac crest with WiserTogethershidi needle and concentrate with assistance of concentration system. I then applied to bone graft first officer and flight instructor mixed with local bone. We then decorticated the transverse process from L4 to the sacral ala bilaterally with a high speed bur as well as the facets. I then packed the lateral gutters with bone graft mixture as above and closed in layered fashion over ALEXANDRO drain. All sponge and needle counts were correct at the end of the case. I attest to the content of the Intraoperative Record and any orders documented therein. Any exceptio ns are noted below.
--- NOTE | 2016-07-05 14:48 | Medical Consult ---
Consultation Date of Consultation: Jul 05, 2016. Attending Physician: Jorden Carr M.D. Reason for Consultation: Respiratory Depression History of Present Illness Patient is a 76 year old female that presents today for surgery with Dr. Deshpande to improve L4/L5 Spinal Stenosis and L5/S1 Spondylethesis. Surgery was uncomplicated and the procedure had a run time of 30 minutes concluding at 11: 34. EBL during surgery estimated to be 350mL. Patient was moved to [place], and at approximately 12:30 began to have respiratory depression with falling O2 saturation. Currently the patient is still slightly confused and still feeling the residual effects of the anesthesia. She denies any shortness of breath, fever, chill, cough, or headaches. Surgery was previously cancelled due to development of new onset Atrial Fibrillation and wad controlled with Metoprolol and Eliquis. Eliquis had been held for >48 hours as per cardiology. The patient denies any previous history of adverse effects to anesthesia. Patient denies any history of smoking. Social History Smoking Status: Never Smoker Smokeless Tobacco Use: No Marital Status: Occupation Status: retired Allergies Coded Allergies: Penicillins (Verified Allergy, Mild, RASH, 07/05/16) Sulfa Antibiotics (Verified Allergy, Mild, RED RASH, 07/05/16) Iodine (Unverified Allergy, Unknown, unknown, 07/05/16) per surgeon's allergy list; please verify with pt Gabapentin (Verified Adverse Reaction, Mild, CONFUSION, 07/05/16) Home Medications Home Meds and Scripts Medications Dose Route/Sig Max Daily Dose Days Date Category Dose Instructions Roxicodone Ir (Oxycodone HCl) 5 Mg Tab 1-2 Tab PO Q4H PRN 07/05/16 Rx Lopressor (Metoprolol Tartrate) 25 Mg Tab 25 Mg PO BID 06/23/16 Reported Eliquis (Apixaban) 5 Mg Tab 5 Mg PO BID 06/23/16 Reported HOLD 48 HOURS PRIOR Zoloft (Sertraline Hcl) 25 Mg Tab 25 Mg PO QAM 05/18/16 Reported Ditropan (Oxybutynin Chloride) 5 Mg Tab 5 Mg PO QAM 05/18/16 Reported Dexilant (Dexlansoprazole) 60 Mg Cap 60 Mg PO QAM 05/18/16 Reported Current Inpatient Medications Current Inpatient Medications Medications (Trade) Dose Ordered Sig/Yuko Route Start Time Stop Time Status Last Admin Dose Admin Lactated Ringer's (Lr 1000ml) 1,000 ml @ 15 mls/hr Q24H IV 07/05/16 06:00 07/06/16 05:59 07/05/16 08:22 15 MLS/HR Metoprolol Tartrate (Lopressor Tab) 25 mg BID PO 07/05/16 21:00 08/04/16 20:59 UNV Oxybutynin Chloride (Ditropan Tab) 5 mg QAM PO 07/06/16 09:00 08/05/16 08:59 UNV Sertraline HCl (Zoloft Tab) 25 mg QAM PO 07/06/16 09:00 08/05/16 08:59 UNV Non-Formulary Medication 60 mg 60 mg QAM PO 07/06/16 09:00 08/05/16 08:59 UNV Clindamycin Phosphate 600 mg/ Dextrose 54 ml @ 100 mls/hr Q8H IV 07/05/16 12:15 07/05/16 20:48 UNV Dexamethasone Sodium Phosphate 6 mg/Syringe 1.5 ml @ 1 mls/min Q8H IV 07/05/16 12:15 07/06/16 04:17 UNV Promethazine HCl/ Sodium Chloride (Phenergan Inj/ Nss 50ml) 50.5 ml @ 202 mls/hr Q6H PRN IV 07/05/16 12:15 08/04/16 12:14 Ondansetron HCl (Zofran Inj) 4 mg Q6H PRN IV 07/05/16 12:15 08/04/16 12:14 07/05/16 13:48 4 MG Metoclopramide HCl (Reglan Inj) 10 mg Q6H PRN IV 07/05/16 12:15 08/04/16 12:14 Lorazepam 0.5 mg 0.5 mg Q8H PRN PO 07/05/16 12:15 08/04/16 12:14 Lorazepam 0.5 mg/ Syringe 1 ml @ 1 mls/min Q8H PRN IV 07/05/16 12:15 08/04/16 12:14 Sodium Chloride (Nss 1000ml) 1,000 ml @ 75 mls/hr [id number] IV 07/05/16 12:05 08/04/16 12:04 UNV Polyethylene (Miralax Powder Packet) 17 gm Q6 PO 07/07/16 06:00 08/06/16 05:59 UNV Bisacodyl (Dulcolax Supp) 10 mg DAILY PRN [place] 07/05/16 12:15 08/04/16 12:14 Magnesium Hydroxide (Milk Of Magnesia Susp) 30 ml DAILY PRN PO 07/05/16 12:15 08/04/16 12:14 Hydromorphone HCl (Dilaudid Inj) 0.5-1mg prn moder... Q3H PRN IV 07/06/16 06:00 07/20/16 05:59 Oxycodone HCl 5-10mg prn moderate to sev... Q4H PRN PO 07/06/16 06:00 07/20/16 05:59 Acetaminophen (Ofirmev Iv) 100 ml @ 400 mls/hr Q8H PRN IV 07/05/16 12:15 08/04/16 12:14 Naloxone HCl (Narcan Inj) 0.1 mg Q5M PRN IV 07/05/16 12:15 08/04/16 12:14 Future hold Senna/Docusate Sodium (Senokot S Tab) 2 tab HS PO 07/05/16 21:00 08/04/16 20:59 UNV Sodium Biphosphate/ Sodium Phosphate (Fleet Enema) 132 ml ONE PRN ID 07/05/16 12:15 08/04/16 12:14 Hydroxyzine HCl (Vistaril Tab) 25 mg Q8H PRN PO 07/05/16 12:15 08/04/16 12:14 UNV Al Hydroxide/Mg Hydroxide (Maalox Susp) 30 ml Q6H PRN PO 07/05/16 12:15 08/04/16 12:14 Famotidine (Pepcid Tab) 20 mg Q12 PRN PO 07/05/16 12:15 08/04/16 12:14 UNV Diphenhydramine HCl (Benadryl Cap) 25 mg Q6H PRN PO 07/05/16 12:15 08/04/16 12:14 Miscellaneous Information (Discontinue RELINER) 1 ea TODAY@0600 ONCE N/A 07/06/16 06:00 07/06/16 06:01 Naloxone HCl (Narcan Inj) 0.1 mg Q5M PRN IV 07/05/16 12:15 07/06/16 06:00 Morphine Sulfate 50 mg 50 mg PRN PRN IV 07/05/16 12:15 07/06/16 06:00 Sodium Chloride (Nss 1000ml) 1,000 ml @ 15 mls/hr Q24H IV 07/05/16 12:05 07/06/16 06:00 Fentanyl Citrate (Fentanyl Inj) 50 mcg Q5M PRN IV 07/05/16 12:15 07/05/16 17:15 Morphine Sulfate (MoRPHine SULFATE INJ) 2 mg Q5M PRN IV 07/05/16 12:15 07/05/16 17:15 Ondansetron HCl (Zofran Inj) 4 mg ONE PRN IV 07/05/16 12:15 07/05/16 17:15 Ephedrine Sulfate (EpHEDrine SULFATE INJ) 5 mg Q5M PRN IV 07/05/16 12:15 07/05/16 17:15 Atropine Sulfate (Atropine Sulfate 0.1MG/Ml Inj) 0.5 mg Q1M PRN IV 07/05/16 12:15 07/05/16 17:15 Review of Systems Constitutional: No chills, No fever, No sweats Respiratory: No cough, No shortness of breath, No sputum, No wheezing Cardiovascular: No chest pain, No edema Abdomen: + nausea, No pain, No vomiting Neurologic: + numbness/tingling Physical Exam Date Time Temp Pulse Resp B/P Pulse Ox O2 Delivery O2 Flow Rate FiO2 07/05/16 13:45 61 16 109/70 98 Nasal Cannula 4.0 07/05/16 13:15 Nasal Cannula 07/05/16 13:15 36.4 69 12 144/75 91 Nasal Cannula 4.0 07/05/16 13:15 Nasal Cannula 4.0 07/05/16 12:51 36.6 68 16 145/69 94 Nasal Cannula 4 07/05/16 12:39 67 14 07/05/16 12:39 68 14 138/64 96 07/05/16 12:34 71 12 07/05/16 12:34 71 12 170/89 95 07/05/16 12:29 67 8 153/64 97 07/05/16 12:29 66 8 07/05/16 12:24 66 12 144/83 98 07/05/16 12:24 66 12 07/05/16 12:19 68 13 07/05/16 12:19 69 13 164/75 98 07/05/16 12:14 69 13 07/05/16 12:14 69 13 173/76 98 07/05/16 12:09 70 14 07/05/16 12:09 70 14 170/77 98 07/05/16 12:08 71 16 07/05/16 12:08 71 16 98 07/05/16 12:04 117/77 07/05/16 12:03 78 17 07/05/16 12:03 78 17 98 07/05/16 11:59 156/65 07/05/16 11:58 36.1 81 14 169/76 97 Mask 10 07/05/16 11:58 81 17 07/05/16 11:58 81 17 98 07/05/16 08:04 36.4 56 18 152/55 95 Room Air General Appearance: WD/WN, no apparent distress Eyes: normal inspection, PERRL, EOMI Respiratory/Chest: chest non-tender, lungs clear, normal breath sounds, no respiratory distress, no accessory muscle use Cardiovascular: regular rate, rhythm, no edema, no JVD, no murmur Abdomen/GI: normal bowel sounds, non tender, soft Neurologic/Psych: alert, normal mood/affect, oriented x 3 Assessment & Plan Patient is a 76 year old female with a past medical history of Spinal Stenosis, Atrial fibrillation, GERD, PUD, Osteoporosis that is POD #0 for spinal surgery with Dr. Deshpande. This consultations is for medical management of the patient 1) POD #0 s/p Spinal Surgery - Pain control - Morphine, Dilaudid, Roxicodone all PRN - Clindamycin - Dexamethasone - Nausea - Zofran & Metoclopramaide PRN - Received 4mg Zofran for nausea at 1400 - Constipation - Mirilax, Ducolex, Senna, and Milk of Magnesia 2) Atrial Fibrillation - Lopressor 25mg PO BID - Resume Eliquis as per orthopaedic surgery, orders from Cardiology to hold >48 hours as per surgery H&P 3) Depression - Zoloft 25mg qAM 4) Overactive Bladder - Ditropan 5mg qAM 5) DVT Prophylaxis - 10,000 unit Heparin Bolus - Primary team will continue prophylaxis regimen
[2016-07-05] MEDS: MoRPHine SULFATE 1 MG/ML 50 ML PCA CASS IV PRN ×2 (15:01→23:05)
[2016-07-05] MEDS: DEXAMETHASONE INJ 6 MG in SYRINGE 0 ML IV SCH ×2 (15:57→23:17)
[2016-07-05] MEDS ORDERED: NURSING VERBAL MED ORDER ONE ×2 (16:30)
[2016-07-05] MEDS ORDERED: SODIUM CHLORIDE 0.9% 500ML 500 ML IV ONE (16:45)
[2016-07-05] MEDS: CLINDAMYCIN IV 600 MG in DEXTROSE 5% ADD-VANTAGE 50ML 50 ML IV SCH (18:35)
[2016-07-05] MEDS: METOPROLOL TARTRATE 25 MG TAB PO SCH (20:59)
[2016-07-05] MEDS: DOCUSATE SODIUM/SENNA 50/8.6MG TAB PO SCH (21:00)
[2016-07-06] MEDS: SODIUM CHLORIDE 0.9% 1000ML 1,000 ML IV SCH (01:40)
[2016-07-06] MEDS: CLINDAMYCIN IV 600 MG in DEXTROSE 5% ADD-VANTAGE 50ML 50 ML IV SCH (01:40)
[2016-07-06 03:35] VITALS: BP 100/58; PULSE 70; TEMP 36.4; O2SAT 100
[2016-07-06] MEDS ORDERED: HYDROmorphone INJ 0.5 MG/0.5 ML SYR IV PRN (06:00)
[2016-07-06] MEDS ORDERED: NURSING DECISION MEDICATION ORDER SCH (06:00)
[2016-07-06] MEDS ORDERED: DC PCA ONE (06:00)
--- NOTE | 2016-07-06 06:38 | Orthopedic Progress Note ---
Orthopedic Progress Note Date of Service Jul 06, 2016. Subjective Post OP Day: 1 Reports: complaints (back pain), feeling well, Denies: SOB, calf pain, chest pain, light headedness, nausea / vomiting Additional Notes: Patient is one day s/p lumbar decompression and fusion, lying in bed, comfortable. Reports back pain without leg pain. She has been sitting bedside already. Restful night of sleep with well controlled pain. No medical complaints to reports and otherwise stable. Objective calves soft nontender, N/V intact, capillary refill less than 2 sec., dressing C /D/I, A&O x3, toes mobile, hemovac drainage Date Time Temp Pulse Resp B/P Pulse Ox O2 Delivery O2 Flow Rate FiO2 07/06/16 03:35 36.4 70 16 100/58 100 Nasal Cannula 4.0 07/05/16 23:15 Nasal Cannula 4.0 07/05/16 22:25 36.3 70 16 99/63 100 Nasal Cannula 4.0 07/05/16 20:49 35.7 71 14 99/61 100 Nasal Cannula 4.0 07/05/16 18:21 36.6 75 16 136/71 100 Nasal Cannula 4.0 07/05/16 16:59 124/71 07/05/16 16:41 68 113/64 99 Nasal Cannula 4.0 07/05/16 16:15 Nasal Cannula 4.0 07/05/16 16:15 36.3 66 12 78/50 98 Nasal Cannula 4.0 07/05/16 15:15 36.3 60 16 97/65 97 Nasal Cannula 4.0 07/05/16 14:16 64 16 115/72 95 Nasal Cannula 4.0 07/05/16 13:45 61 16 109/70 98 Nasal Cannula 4.0 07/05/16 13:15 Nasal Cannula 07/05/16 13:15 36.4 69 12 144/75 91 Nasal Cannula 4.0 07/05/16 13:15 Nasal Cannula 4.0 07/05/16 12:51 36.6 68 16 145/69 94 Nasal Cannula 4 07/05/16 12:39 67 14 07/05/16 12:39 68 14 138/64 96 07/05/16 12:34 71 12 07/05/16 12:34 71 12 170/89 95 07/05/16 12:29 67 8 153/64 97 07/05/16 12:29 66 8 07/05/16 12:24 66 12 144/83 98 07/05/16 12:24 66 12 07/05/16 12:19 68 13 07/05/16 12:19 69 13 164/75 98 07/05/16 12:14 69 13 07/05/16 12:14 69 13 173/76 98 07/05/16 12:09 70 14 07/05/16 12:09 70 14 170/77 98 07/05/16 12:08 71 16 07/05/16 12:08 71 16 98 07/05/16 12:04 117/77 07/05/16 12:03 78 17 07/05/16 12:03 78 17 98 07/05/16 11:59 156/65 07/05/16 11:58 36.1 81 14 169/76 97 Mask 10 07/05/16 11:58 81 17 07/05/16 11:58 81 17 98 07/05/16 08:04 36.4 56 18 152/55 95 Room Air Laboratory Results 24 Hours: Test 07/06/16 04:44 Assessment & Plan Assessment: S/P lumbar decompression and fusion Plan: 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
[2016-07-06 07:43] LABS: COMPLETE YES; HEMATOCRIT 32.8 % (37-47); IG% 0.3 %; LYMPH % 7.6 %; LYMPH ABS # 0.88 K/uL (1.2-3.4); MEAN CORPUSCULAR HEMOGLOBIN 28.9 pg (25-34); MEAN CORPUSCULAR HGB CONC 33.2 g/dl (32-36); MEAN PLATELET VOLUME 11.1 fL (7.4-10.4); MONO % 5.7 %; NEUT % 86.4 %; PLATELET COUNT 156 K/uL (130-400); RED BLOOD COUNT 3.77 M/uL (4.2-5.4); WHITE BLOOD COUNT 11.59 K/uL (4.8-10.8)
[2016-07-06 07:50] VITALS: BP 116/70; PULSE 69; TEMP 36.7; O2SAT 92
[2016-07-06 08:12] LABS: BUN/CREATININE RATIO 16.1 (10-20); CALCIUM 8.2 mg/dl (8.5-10.1); CREATININE 0.84 mg/dl (0.60-1.20); POTASSIUM 4.3 mmol/L (3.5-5.1)
[2016-07-06] MEDS: SERTRALINE HCL 50 MG TAB PO SCH (08:48)
[2016-07-06] MEDS: PANTOprazole SOD 40 MG TAB PO SCH (08:48)
[2016-07-06] MEDS: METOPROLOL TARTRATE 25 MG TAB PO SCH ×2 (08:49→20:37)
[2016-07-06] MEDS: OXYBUTYNIN CHLORIDE 5 MG TAB PO SCH (08:49)
[2016-07-06] MEDS: DEXAMETHASONE INJ 6 MG in SYRINGE 0 ML IV SCH (08:51)
[2016-07-06] MEDS: OXYCODONE HCL IR 5 MG TAB (IMMEDIATE RELEASE) PO PRN ×2 (08:51→16:35)
[2016-07-06 10:32] VITALS: O2SAT 92
[2016-07-06 11:42] VITALS: BP 107/65; PULSE 65; TEMP 37.1; O2SAT 94
--- NOTE | 2016-07-06 12:53 | Hospitalist Progress Note ---
Hospitalist Progress Note Date of Service Jul 06, 2016. Subjective Pt evaluation today including: conversation w/ patient, physical exam, chart review, lab review, review of studies, review of inpatient medication list Patient had no acute issues overnight Denied any SOB, chest pain, fevers, c/o back pain controlled with medication Constitutional: No fever, No weight loss Eyes: No worsening of vision ENT: No hearing loss Respiratory: No cough, No shortness of breath Cardiovascular: No chest pain Abdomen: No constipation, No diarrhea, No pain, No vomiting Musculoskeletal: No joint pain Female : No dysuria Neurologic: No memory loss Psychiatric: No depression symptoms Endo: No fatigue Skin: No rash Medications Current Inpatient Medications Medications (Trade) Dose Ordered Sig/Yuko Route Start Time Stop Time Status Last Admin Dose Admin Metoprolol Tartrate (Lopressor Tab) 25 mg BID PO 07/05/16 21:00 08/04/16 20:59 07/06/16 08:49 25 MG Oxybutynin Chloride (Ditropan Tab) 5 mg QAM PO 07/06/16 09:00 08/05/16 08:59 07/06/16 08:49 5 MG Sertraline HCl (Zoloft Tab) 25 mg QAM PO 07/06/16 09:00 08/05/16 08:59 07/06/16 08:48 25 MG Pantoprazole Sodium 40 mg 40 mg QAM PO 07/06/16 09:00 08/05/16 08:59 07/06/16 08:48 40 MG Promethazine HCl/ Sodium Chloride (Phenergan Inj/ Nss 50ml) 50.5 ml @ 202 mls/hr Q6H PRN IV 07/05/16 12:15 08/04/16 12:14 07/05/16 15:52 202 MLS/HR Ondansetron HCl (Zofran Inj) 4 mg Q6H PRN IV 07/05/16 12:15 08/04/16 12:14 07/05/16 13:48 4 MG Metoclopramide HCl (Reglan Inj) 10 mg Q6H PRN IV 07/05/16 12:15 08/04/16 12:14 Lorazepam 0.5 mg 0.5 mg Q8H PRN PO 07/05/16 12:15 08/04/16 12:14 Lorazepam/Syringe (Ativan Inj/ Syringe) 1 ml @ 1 mls/min Q8H PRN IV 07/05/16 12:15 08/04/16 12:14 Polyethylene (Miralax Powder Packet) 17 gm Q6 PO 07/07/16 06:00 08/06/16 05:59 Bisacodyl (Dulcolax Supp) 10 mg DAILY PRN [place] 07/05/16 12:15 08/04/16 12:14 Magnesium Hydroxide (Milk Of Magnesia Susp) 30 ml DAILY PRN PO 07/05/16 12:15 08/04/16 12:14 Hydromorphone HCl (Dilaudid Inj) 0.5-1mg prn moder... Q3H PRN IV 07/06/16 06:00 07/20/16 05:59 07/06/16 10:51 0.5 MG Oxycodone HCl 5-10mg prn moderate to sev... Q4H PRN PO 07/06/16 06:00 07/20/16 05:59 07/06/16 08:51 10 MG Acetaminophen (Ofirmev Iv) 100 ml @ 400 mls/hr Q8H PRN IV 07/05/16 12:15 08/04/16 12:14 Naloxone HCl (Narcan Inj) 0.1 mg Q5M PRN IV 07/05/16 12:15 08/04/16 12:14 Future hold Senna/Docusate Sodium (Senokot S Tab) 2 tab HS PO 07/05/16 21:00 08/04/16 20:59 07/05/16 21:00 2 TAB Sodium Biphosphate/ Sodium Phosphate (Fleet Enema) 132 ml ONE PRN [place] 07/05/16 12:15 08/04/16 12:14 Hydroxyzine HCl (Vistaril Tab) 25 mg Q8H PRN PO 07/05/16 12:15 08/04/16 12:14 Al Hydroxide/Mg Hydroxide (Maalox Susp) 30 ml Q6H PRN PO 07/05/16 12:15 08/04/16 12:14 Famotidine (Pepcid Tab) 20 mg Q12 PRN PO 07/05/16 12:15 08/04/16 12:14 Diphenhydramine HCl (Benadryl Cap) 25 mg Q6H PRN PO 07/05/16 12:15 08/04/16 12:14 Objective Vital Signs Date Time Temp Pulse Resp B/P Pulse Ox O2 Delivery O2 Flow Rate FiO2 07/06/16 11:42 37.1 65 18 107/65 94 Room Air 07/06/16 10:32 92 Room Air 07/06/16 08:12 Room Air 07/06/16 07:50 36.7 69 20 116/70 92 Room Air 07/06/16 03:35 36.4 70 16 100/58 100 Nasal Cannula 4.0 07/05/16 23:15 Nasal Cannula 4.0 07/05/16 22:25 36.3 70 16 99/63 100 Nasal Cannula 4.0 07/05/16 20:49 35.7 71 14 99/61 100 Nasal Cannula 4.0 07/05/16 18:21 36.6 75 16 136/71 100 Nasal Cannula 4.0 07/05/16 16:59 124/71 07/05/16 16:41 68 113/64 99 Nasal Cannula 4.0 07/05/16 16:15 Nasal Cannula 4.0 07/05/16 16:15 36.3 66 12 78/50 98 Nasal Cannula 4.0 07/05/16 15:15 36.3 60 16 97/65 97 Nasal Cannula 4.0 07/05/16 14:16 64 16 115/72 95 Nasal Cannula 4.0 07/05/16 13:45 61 16 109/70 98 Nasal Cannula 4.0 07/05/16 13:15 Nasal Cannula 07/05/16 13:15 36.4 69 12 144/75 91 Nasal Cannula 4.0 07/05/16 13:15 Nasal Cannula 4.0 07/05/16 12:51 36.6 68 16 145/69 94 Nasal Cannula 4 Physical Exam General Appearance: WD/WN, no apparent distress Eyes: normal inspection ENT: normal ENT inspection Neck: supple, no adenopathy Respiratory/Chest: chest non-tender, lungs clear Cardiovascular: regular rate, rhythm, no edema Abdomen: normal bowel sounds, non tender, soft Extremities: normal range of motion, non-tender 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 as tested, no motor/sensory deficits, alert, oriented x 3 Lymphatic: no adenopathy Laboratory Results Last 24 Hours Test 07/06/16 06:50 White Blood Count 11.59 K/uL Red Blood Count 3.77 M/uL Hemoglobin 10.9 g/dL Hematocrit 32.8 % Mean Corpuscular Volume 87.0 fL Mean Corpuscular Hemoglobin 28.9 pg Mean Corpuscular Hemoglobin Concent 33.2 g/dl Platelet Count 156 K/uL Mean Platelet Volume 11.1 fL Neutrophils (%) (Auto) 86.4 % Lymphocytes (%) (Auto) 7.6 % Monocytes (%) (Auto) 5.7 % Eosinophils (%) (Auto) 0.0 % Basophils (%) (Auto) 0.0 % Neutrophils # (Auto) 10.01 K/uL Lymphocytes # (Auto) 0.88 K/uL Monocytes # (Auto) 0.66 K/uL Eosinophils # (Auto) 0.00 K/uL Basophils # (Auto) 0.00 K/uL RDW Standard Deviation 45.2 fL RDW Coefficient of Variation 14.3 % Immature Granulocyte % (Auto) 0.3 % Immature Granulocyte # (Auto) 0.04 K/uL Sodium Level 144 mmol/L Potassium Level 4.3 mmol/L Chloride Level 109 mmol/L Carbon Dioxide Level 24 mmol/L Anion Gap 11.0 mmol/L Blood Urea Nitrogen 14 mg/dl Creatinine 0.84 mg/dl Est Creatinine Clear Calc Drug Dose 54.0 ml/min Estimated GFR () 78.2 Estimated GFR (Non- 67.5 BUN/Creatinine Ratio 16.1 Random Glucose 152 mg/dl Calcium Level 8.2 mg/dl Assessment and Plan Patient is a 76 year old female with a past medical history of Spinal Stenosis, Atrial fibrillation, GERD, PUD, Osteoporosis that is POD #0 for spinal surgery with Dr. Desphande. This consultations is for medical management of the patient 1) POD #1 s/p Spinal Surgery - Pain control - Morphine, Dilaudid, Roxicodone all PRN - Nausea - Zofran & Metoclopramaide PRN - Constipation - Mirilax, Ducolex, Senna, and Milk of Magnesia - PT/OT 2) Atrial Fibrillation - Lopressor 25mg PO BID - resume eliquis tommorrow 3) Depression - Zoloft 25mg qAM 4) Overactive Bladder - Ditropan 5mg qAM 5) DVT Prophylaxis - Primary team will continue prophylaxis regimen
--- NOTE | 2016-07-06 14:08 | Anesthesiology Progress Note ---
Anesthesia Post Op Note Date & Time Jul 06, 2016 at 14:07 Vital Signs Pain Intensity: 3.0 Vital Signs Past 12 Hours Date Time Temp Pulse Resp B/P Pulse Ox O2 Delivery O2 Flow Rate FiO2 07/06/16 11:42 37.1 65 18 107/65 94 Room Air 07/06/16 10:32 92 Room Air 07/06/16 08:12 Room Air 07/06/16 07:50 36.7 69 20 116/70 92 Room Air 07/06/16 03:35 36.4 70 16 100/58 100 Nasal Cannula 4.0 Notes Mental Status: alert / awake / arousable, participated in evaluation Pt Amnestic to Procedure: Yes Nausea / Vomiting: adequately controlled Pain: adequately controlled Airway Patency, RR, SpO2: stable & adequate BP & HR: stable & adequate Hydration State: stable & adequate Anesthetic Complications: no major complications apparent
[2016-07-06 15:14] VITALS: BP 104/65; PULSE 74; TEMP 36.9; O2SAT 94
[2016-07-06] MEDS: DOCUSATE SODIUM/SENNA 50/8.6MG TAB PO SCH (21:13)
[2016-07-06 22:47] VITALS: BP 104/60; PULSE 78; TEMP 36.6; O2SAT 95
[2016-07-07] MEDS: POLYETHYLENE (MIRALAX) 17 GM PACK PO SCH ×4 (05:54→23:46)
[2016-07-07] MEDS: OXYCODONE HCL IR 5 MG TAB (IMMEDIATE RELEASE) PO PRN (06:00)
[2016-07-07 07:02] VITALS: BP 115/72; PULSE 73; TEMP 36.8; O2SAT 94
[2016-07-07] MEDS: PANTOprazole SOD 40 MG TAB PO SCH (08:52)
[2016-07-07] MEDS: OXYBUTYNIN CHLORIDE 5 MG TAB PO SCH (08:52)
[2016-07-07] MEDS: SERTRALINE HCL 50 MG TAB PO SCH (08:52)
[2016-07-07] MEDS: METOPROLOL TARTRATE 25 MG TAB PO SCH ×2 (08:53→20:46)
--- NOTE | 2016-07-07 12:43 | Orthopedic Progress Note ---
Orthopedic Progress Note Date of Service Jul 07, 2016. Subjective Post OP Day: 2 Reports: feeling well, pain controlled w PO medications, Denies: SOB, calf pain , chest pain, complaints, light headedness, nausea / vomiting, using COOK 3 PASTRY Objective calves soft nontender, N/V intact, dressing C/D/I, A&O x3 Date Time Temp Pulse Resp B/P Pulse Ox O2 Delivery O2 Flow Rate FiO2 07/07/16 07:28 Room Air 07/07/16 07:02 36.8 73 19 115/72 94 Room Air 07/06/16 22:47 36.6 78 16 104/60 95 Room Air 07/06/16 19:00 Room Air 07/06/16 15:14 36.9 74 16 104/65 94 Room Air Assessment & Plan Assessment: S/P lumbar decompression and fusion Plan: improving, cont PT, d/c home monday. hct stable.
--- NOTE | 2016-07-07 14:54 | Hospitalist Progress Note ---
Hospitalist Progress Note Date of Service Jul 07, 2016. Subjective Pt evaluation today including: conversation w/ patient, physical exam, chart review, lab review, review of studies, review of inpatient medication list Patient had no acute issues overnight Denies any back pain Constitutional: No fever Eyes: No worsening of vision ENT: No hearing loss Respiratory: No cough, No shortness of breath Cardiovascular: No chest pain, No edema Abdomen: No constipation, No diarrhea, No pain, No vomiting Musculoskeletal: No joint pain Female : No dysuria, No hematuria Neurologic: No memory loss Psychiatric: No depression symptoms Skin: No rash Medications Current Inpatient Medications Medications (Trade) Dose Ordered Sig/Yuko Route Start Time Stop Time Status Last Admin Dose Admin Metoprolol Tartrate (Lopressor Tab) 25 mg BID PO 07/05/16 21:00 08/04/16 20:59 07/06/16 20:37 25 MG Oxybutynin Chloride (Ditropan Tab) 5 mg QAM PO 07/06/16 09:00 08/05/16 08:59 07/07/16 08:52 5 MG Sertraline HCl (Zoloft Tab) 25 mg QAM PO 07/06/16 09:00 08/05/16 08:59 07/07/16 08:52 25 MG Pantoprazole Sodium 40 mg 40 mg QAM PO 07/06/16 09:00 08/05/16 08:59 07/07/16 08:52 40 MG Promethazine HCl/ Sodium Chloride (Phenergan Inj/ Nss 50ml) 50.5 ml @ 202 mls/hr Q6H PRN IV 07/05/16 12:15 08/04/16 12:14 07/05/16 15:52 202 MLS/HR Ondansetron HCl (Zofran Inj) 4 mg Q6H PRN IV 07/05/16 12:15 08/04/16 12:14 07/05/16 13:48 4 MG Metoclopramide HCl (Reglan Inj) 10 mg Q6H PRN IV 07/05/16 12:15 08/04/16 12:14 Lorazepam 0.5 mg 0.5 mg Q8H PRN PO 07/05/16 12:15 08/04/16 12:14 Lorazepam/Syringe (Ativan Inj/ Syringe) 1 ml @ 1 mls/min Q8H PRN IV 07/05/16 12:15 08/04/16 12:14 Polyethylene (Miralax Powder Packet) 17 gm Q6 PO 07/07/16 06:00 08/06/16 05:59 07/07/16 05:54 17 GM Bisacodyl (Dulcolax Supp) 10 mg DAILY PRN [place] 07/05/16 12:15 08/04/16 12:14 Magnesium Hydroxide (Milk Of Magnesia Susp) 30 ml DAILY PRN PO 07/05/16 12:15 08/04/16 12:14 Hydromorphone HCl (Dilaudid Inj) 0.5-1mg prn moder... Q3H PRN IV 07/06/16 06:00 07/20/16 05:59 07/06/16 10:51 0.5 MG Oxycodone HCl 5-10mg prn moderate to sev... Q4H PRN PO 07/06/16 06:00 07/20/16 05:59 07/07/16 06:00 10 MG Acetaminophen (Ofirmev Iv) 100 ml @ 400 mls/hr Q8H PRN IV 07/05/16 12:15 08/04/16 12:14 Naloxone HCl (Narcan Inj) 0.1 mg Q5M PRN IV 07/05/16 12:15 08/04/16 12:14 Future hold Senna/Docusate Sodium (Senokot S Tab) 2 tab HS PO 07/05/16 21:00 08/04/16 20:59 07/06/16 21:13 2 TAB Sodium Biphosphate/ Sodium Phosphate (Fleet Enema) 132 ml ONE PRN [place] 07/05/16 12:15 08/04/16 12:14 Hydroxyzine HCl (Vistaril Tab) 25 mg Q8H PRN PO 07/05/16 12:15 08/04/16 12:14 Al Hydroxide/Mg Hydroxide (Maalox Susp) 30 ml Q6H PRN PO 07/05/16 12:15 08/04/16 12:14 Famotidine (Pepcid Tab) 20 mg Q12 PRN PO 07/05/16 12:15 08/04/16 12:14 Diphenhydramine HCl (Benadryl Cap) 25 mg Q6H PRN PO 07/05/16 12:15 08/04/16 12:14 Objective Vital Signs Date Time Temp Pulse Resp B/P Pulse Ox O2 Delivery O2 Flow Rate FiO2 07/07/16 07:28 Room Air 07/07/16 07:02 36.8 73 19 115/72 94 Room Air 07/06/16 22:47 36.6 78 16 104/60 95 Room Air 07/06/16 19:00 Room Air 07/06/16 15:14 36.9 74 16 104/65 94 Room Air Physical Exam General Appearance: WD/WN, no apparent distress Eyes: normal inspection ENT: normal ENT inspection Neck: supple Respiratory/Chest: chest non-tender, lungs clear Cardiovascular: regular rate, rhythm, no edema Abdomen: normal bowel sounds, non tender, soft Extremities: normal range of motion 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 Deshpande. This consultations is for medical management of the patient 1) POD #2 s/p Spinal Surgery - Pain control - Morphine, Dilaudid, Roxicodone all PRN - Nausea - Zofran & Metoclopramaide PRN - Constipation - Mirilax, Ducolex, Senna, and Milk of Magnesia - PT/OT 2) Atrial Fibrillation - Lopressor 25mg PO BID - resume eliquis today 3) Depression - Zoloft 25mg qAM 4) Overactive Bladder - Ditropan 5mg qAM 5) DVT Prophylaxis - Primary team will continue prophylaxis regimen
[2016-07-07 15:02] VITALS: BP 126/63; PULSE 75; TEMP 36.8; O2SAT 94
[2016-07-07] MEDS: ACETAMINOPHEN IV 100 ML IV PRN (18:08)
[2016-07-07] MEDS: DOCUSATE SODIUM/SENNA 50/8.6MG TAB PO SCH (20:46)
[2016-07-07] MEDS: APIXABAN 2.5 MG TAB PO SCH (20:47)
[2016-07-07 21:00] VITALS: BP 115/60; PULSE 100
[2016-07-07 22:54] VITALS: BP 104/70; PULSE 145; TEMP 37.1; O2SAT 95
--- NOTE | 2016-07-07 23:38 | Progress Note ---
Progress Note Date of Service Jul 07, 2016. Progress Note Pt developed rapid AF - HR >130 - BP low 100s - Hx of AF controlled with Metop 25 BID Pt is anticoagulated with Eliquis post-op Transferred to telemetry - provided with additional metop 2.5 IV in addition to PO Dig x 3 doses
[2016-07-07] MEDS ORDERED: DIGOXIN 0.125 MG TAB PO ONE (23:45)
[2016-07-08] VITALS (10 sets, daily range): BP systolic 91–133; BP diastolic 61–84; PULSE 70–143; TEMP 36.6–37; O2SAT 94–99
[2016-07-08] MEDS: OXYCODONE HCL IR 5 MG TAB (IMMEDIATE RELEASE) PO PRN ×2 (00:42→07:48)
[2016-07-08] MEDS ORDERED: METOPROLOL TARTRATE 1 MG/ML VIAL IV STA (00:47)
[2016-07-08] MEDS ORDERED: DILTIAZEM BOLUS / DRIP IV STA (04:24)
[2016-07-08] MEDS ORDERED: DILTIAZEM HCL INJ 125 MG in DEXTROSE 5% 100ML IV PRN (05:00)
[2016-07-08] MEDS: POLYETHYLENE (MIRALAX) 17 GM PACK PO SCH ×4 (05:25→23:11)
[2016-07-08] MEDS: DIGOXIN 0.25 MG TAB PO SCH ×4 (05:25→23:11)
[2016-07-08 06:39] LABS: HEMATOCRIT 30.8 % (37-47); MEAN CORPUSCULAR HEMOGLOBIN 29.1 pg (25-34); MEAN CORPUSCULAR HGB CONC 33.4 g/dl (32-36); MEAN PLATELET VOLUME 11.2 fL (7.4-10.4); PLATELET COUNT 175 K/uL (130-400); RED BLOOD COUNT 3.54 M/uL (4.2-5.4); WHITE BLOOD COUNT 10.91 K/uL (4.8-10.8)
[2016-07-08] MEDS: PANTOprazole SOD 40 MG TAB PO SCH (07:45)
[2016-07-08] MEDS: SERTRALINE HCL 50 MG TAB PO SCH (07:46)
[2016-07-08] MEDS: APIXABAN 2.5 MG TAB PO SCH ×2 (07:46→21:40)
[2016-07-08] MEDS: METOPROLOL TARTRATE 25 MG TAB PO SCH ×2 (07:46→21:39)
[2016-07-08] MEDS: OXYBUTYNIN CHLORIDE 5 MG TAB PO SCH (07:46)
[2016-07-08] MEDS: ACETAMINOPHEN IV 100 ML IV PRN (11:21)
--- NOTE | 2016-07-08 11:25 | Orthopedic Progress Note ---
Orthopedic Progress Note Date of Service Jul 08, 2016. Subjective Post OP Day: 3 Denies: SOB, calf pain, chest pain, complaints, feeling well, light headedness, nausea / vomiting, pain controlled w PO medications, using [employer] Objective calves soft nontender, N/V intact, dressing C/D/I, A&O x3 Date Time Temp Pulse Resp B/P Pulse Ox O2 Delivery O2 Flow Rate FiO2 07/08/16 08:17 36.9 79 18 133/84 99 07/08/16 08:05 Room Air 07/08/16 05:55 135 18 112/62 07/08/16 05:25 130 07/08/16 05:20 140 18 123/75 95 Room Air 07/08/16 04:21 37.0 102 18 91/69 96 07/08/16 04:00 95 Room Air 07/08/16 01:01 137 113/69 07/08/16 01:00 140 16 113/69 95 Room Air 07/08/16 00:20 36.9 143 18 96/61 95 Room Air 07/08/16 00:15 37.1 133 16 95 07/08/16 00:07 133 07/07/16 22:54 37.1 145 16 104/70 95 Room Air 07/07/16 21:00 100 115/60 07/07/16 19:30 Room Air 07/07/16 16:10 Room Air 07/07/16 15:02 36.8 75 18 126/63 94 Room Air Laboratory Results 24 Hours: Test 07/08/16 06:20 Hematocrit 30.8 % Hemoglobin 10.3 g/dL Assessment & Plan Assessment: S/P lumbar decompression and fusion Plan: events noted, in and out of afib, slightly confused but no focal deficits, on eliquis, management per cards/medicine, will need rehab eval when medically stable
[2016-07-08 11:46] LABS: BUN/CREATININE RATIO 23.3 (10-20); CALCIUM 8.2 mg/dl (8.5-10.1); CREATININE 0.58 mg/dl (0.60-1.20); POTASSIUM 3.9 mmol/L (3.5-5.1)
--- NOTE | 2016-07-08 12:36 | CARDIOLOGY CONSULTATION ---
DATE OF CONSULTATION: 07/08/2016 CHIEF COMPLAINT: Atrial fibrillation. HISTORY OF PRESENT ILLNESS: Mrs. Afshan Lynch is a 76-year-old woman with a history of atrial fibrillation, having undergone an evaluation in May of this year for a similar complaint by Dr. Paul Arreguin. The patient underwent spinal surgery on the 05 of July and had a relatively uncomplicated recovery to the development of atrial fibrillation. The patient was noted to have high ventricular rates and begun on a more aggressive rate control therapy to include digoxin and diltiazem infusion. This resulted in some reduction in the heart rate, associated with brief periods of asystole lasting up to 3 seconds in duration. Upon interview, the patient does not report any symptoms of tachycardia or palpitations. Her main concern is back pain, presumably at the operative site. She states that in general, she "doesn't feel well" but is unable to characterize the statement further. Upon additional questioning, she denied symptoms of chest discomfort. She has no jaw or arm pain. She is not aware of any palpitations. She has not been able to perform much activity. She has little appetite, but denies significant nausea and has not had vomiting. She did endorse a sense of dyspnea but once again was unable to characterize this further. The patient was fairly somnolent during this interview and obviously confused at times. She was unable to provide much additional history as a result. PAST MEDICAL HISTORY: Includes: 1. Atrial fibrillation. Her initial diagnosis was in 2010. More recently admitted to [facility] in May of this year with atrial fibrillation. The patient is on rate control therapy with metoprolol as well as stroke prophylaxis with Eliquis. 2. Spinal stenosis with radiculopathy. 3. Depression. 4. Gastroesophageal reflux disease. 5. Osteoporosis. 6. Peptic ulcer disease. 7. Osteoarthritis. PAST SURGICAL HISTORY: Includes the aforementioned spinal lumbar surgery, hysterectomy, bladder suspension, carpal tunnel release, left foot surgery x3, rotator cuff repair on the right, section, laparoscopic cholecystectomy and appendectomy. MEDICATIONS: Outpatient medications included apixaban 5 mg twice daily, dexlansoprazole 60 mg daily, metoprolol tartrate 25 mg twice daily, oxybutynin 5 mg daily, oxycodone on a p.r.n. basis, sertraline 25 mg daily. CURRENT MEDICATIONS: Include apixaban, digoxin, Pepcid, hydroxyzine on a p.r.n. basis, metoprolol tartrate 25 mg twice daily, oxybutynin 5 mg daily, pantoprazole 40 mg daily, sertraline 25 mg daily. MEDICAL ALLERGIES: INCLUDE IODINE, KERATIN, PENICILLIN, SULFA, NEURONTIN. SOCIAL HISTORY: The patient lives outside of the area. She has a daughter who lives locally. She is a lifelong nonsmoker and denies overuse of alcohol. FAMILY HISTORY: Appears to be some premature coronary artery disease, primarily in a son. No other pertinent family history. REVIEW OF SYSTEMS: A complete 10-system review of systems was not entirely obtainable due to the patient's somnolence and confusion. PHYSICAL EXAMINATION: GENERAL: The patient appeared to be somnolent during the examination. She was easily arousable however. She was oriented to person, but little else. Mood and affect appeared to be somewhat depressed. CURRENT VITAL SIGNS: Included a blood pressure of 133/84 with a pulse of 79. HEENT: Her sclerae are anicteric. Extraocular movements appear to be intact. Palpation of the submandibular region not really significant for lymphadenopathy. NECK: The carotids were palpable bilaterally. I do not appreciate any bruits on auscultation. There is no evidence of jugular venous distention. The thyroid is not enlarged. LUNGS: Auscultation of her lung dickens revealed overall poor excursion due to reduced effort with no use of accessory muscles. However, she was not tachypneic. There were bibasilar crackles bilaterally. No expiratory wheezing however. HEART: Revealed her to be in an irregularly irregular rhythm. S1, S2 appeared to be normal. I do not appreciate any murmurs on exam. PMI did not appear to be markedly displaced. ABDOMEN: Soft. EXTREMITIES: Evaluation of both wrists reveals radial pulses that are equal in intensity bilaterally. I do not appreciate any cyanosis or clubbing. Evaluation of her lower extremities revealed her to have SCDs on. No assessment of peripheral edema could be made as a result. I do not appreciate any rashes on examination today. LABORATORY DATA: Most recent laboratory studies included a white cell count of 10.9, hemoglobin of 10.3, platelet count of 175. Chemistry profile included sodium 144, potassium of 4.3, BUN of 14, creatinine is 0.8. An echocardiogram has been obtained on 06/01/2016 which revealed overall preserved left ventricular systolic function. There was mild dilation of left atrium. No specific valvular abnormalities were identified. Review of the patient's current telemetry does reveal atrial fibrillation with a variable ventricular response, at times rapid and occasionally with brief periods of ventricular asystole, lasting approximately 3 seconds in duration. ASSESSMENT AND PLAN: 1. Atrial fibrillation. This is likely still paroxysmal. It is not uncommon for the patient to have a period of atrial fibrillation in the postoperative period or under significant stress, is undoubtedly also experiencing some volume shifts related to her procedure and hospitalization. Fortunately, she is not symptomatic from the atrial fibrillation proper. Main complaint is continued pain at the operative site. Her history is somewhat unreliable, given her sedated state, likely secondary to narcotic administration. The patient has been placed back on her usual regimen of anticoagulation. She has been maintained on her outpatient regimen of beta blockade since surgery. She continues to have rapid ventricular response however and likely needs additional rate control agents. Given the brief periods of ventricular asystole, it would seem reasonable to be slightly less aggressive at this point. Recommend continuation of the digoxin and metoprolol with discontinuation of the diltiazem currently. Should she continue to have rapid ventricular response over the next 24 hours, we can consider increasing the beta blockade as well. I would favor this over adding a third agent at this point. I think it is likely that the patient will convert back to a sinus rhythm during this hospitalization. It is possible that she cycles in and out frequently, even at home. Once again, it has been difficult to assess her symptoms associated with the arrhythmia due to her somnolent state. 2. Tachybrady syndrome. The patient did have notable ventricular high rates with the atrial fibrillation and brief pauses; however, this was in the setting of aggressive rate control. I do not feel currently that the patient warrants consideration of a pacemaker. I think we have additional options for rate control. However, as her overall clinical condition improves and medical titration fails to adequately control her heart rates, this could be entertained. The patient does live remotely and may need to have this issue evaluated as an outpatient subsequent to discharge. FINAL RECOMMENDATIONS: 1. Continue oral anticoagulation with Eliquis. 2. Discontinue diltiazem infusion. 3. Continue current dose of metoprolol. 4. Agree with addition of digoxin currently. 5. Additional titration of metoprolol based on heart rate response.
--- NOTE | 2016-07-08 12:44 | Hospitalist Progress Note ---
Hospitalist Progress Note Date of Service Jul 08, 2016. Subjective Pt evaluation today including: conversation w/ patient, physical exam, chart review, lab review, review of studies, conversation w/ splunk consultant, review of inpatient medication list Pt developed rapd afibb overnight in the 130's Patient asymptomatic Transferred to telemetry - provided with additional metop 2.5 IV in addition to PO Dig x 3 doses Thia am patient HR dropped to 40's Constitutional: No fever Eyes: No worsening of vision ENT: No hearing loss Respiratory: No cough, No shortness of breath Cardiovascular: No chest pain, No edema Abdomen: No pain Objective Vital Signs Date Time Temp Pulse Resp B/P Pulse Ox O2 Delivery O2 Flow Rate FiO2 07/08/16 12:03 Room Air 07/08/16 11:40 36.6 81 18 129/77 97 07/08/16 11:26 111 07/08/16 08:17 36.9 79 18 133/84 99 07/08/16 08:05 Room Air 07/08/16 05:55 135 18 112/62 07/08/16 05:25 130 07/08/16 05:20 140 18 123/75 95 Room Air 07/08/16 04:21 37.0 102 18 91/69 96 07/08/16 04:00 95 Room Air 07/08/16 01:01 137 113/69 07/08/16 01:00 140 16 113/69 95 Room Air 07/08/16 00:20 36.9 143 18 96/61 95 Room Air 07/08/16 00:15 37.1 133 16 95 07/08/16 00:07 133 07/07/16 22:54 37.1 145 16 104/70 95 Room Air 07/07/16 21:00 100 115/60 07/07/16 19:30 Room Air 07/07/16 16:10 Room Air 07/07/16 15:02 36.8 75 18 126/63 94 Room Air Physical Exam General Appearance: WD/WN, no apparent distress Eyes: normal inspection ENT: normal ENT inspection Neck: supple, no adenopathy Respiratory/Chest: chest non-tender, lungs clear Cardiovascular: no edema, no JVD, + irregularly irregular Abdomen: normal bowel sounds, non tender, soft Extremities: normal range of motion, non-tender Neurologic/Psychiatric: 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 nml as tested, no motor/sensory deficits, alert, + disoriented Skin: normal color, warm/dry, no rash Laboratory Results Last 24 Hours Test 07/08/16 06:20 White Blood Count 10.91 K/uL Red Blood Count 3.54 M/uL Hemoglobin 10.3 g/dL Hematocrit 30.8 % Mean Corpuscular Volume 87.0 fL Mean Corpuscular Hemoglobin 29.1 pg Mean Corpuscular Hemoglobin Concent 33.4 g/dl RDW Standard Deviation 46.5 fL RDW Coefficient of Variation 14.6 % Platelet Count 175 K/uL Mean Platelet Volume 11.2 fL Sodium Level 143 mmol/L Potassium Level 3.9 mmol/L Chloride Level 110 mmol/L Carbon Dioxide Level 25 mmol/L Anion Gap 8.0 mmol/L Blood Urea Nitrogen 14 mg/dl Creatinine 0.58 mg/dl Est Creatinine Clear Calc Drug Dose 78.2 ml/min Estimated GFR () 103.8 Estimated GFR (Non- 89.5 BUN/Creatinine Ratio 23.3 Random Glucose 128 mg/dl Calcium Level 8.2 mg/dl Magnesium Level 2.0 mg/dl Assessment and Plan Patient is a 76 year old female with a past medical history of Spinal Stenosis, Atrial fibrillation, GERD, PUD, Osteoporosis that is POD #0 for spinal surgery with Dr. Deshpande. This consultations is for medical management of the patient 1) POD #3 s/p Spinal Surgery - Pain control - Morphine, Dilaudid, Roxicodone all PRN - Nausea - Zofran & Metoclopramaide PRN - Constipation - Mirilax, Ducolex, Senna, and Milk of Magnesia - PT/OT 2) Atrial Fibrillation with RVR - currently in the 80's - appreciate cardiology input - d/c metoprolol due to bradycardia per cardiology - continue digoxin - continue eliquis 3.)Bradycardia - suspect 2/2 to BB - d/c po metoprolol - cont lopresor prn 4) Depression - Zoloft 25mg qAM 5) Overactive Bladder - Ditropan 5mg qAM 6) DVT Prophylaxis - eliquis
[2016-07-08] MEDS: DOCUSATE SODIUM/SENNA 50/8.6MG TAB PO SCH (21:40)
[2016-07-09] VITALS (8 sets, daily range): BP systolic 101–169; BP diastolic 60–71; PULSE 64–86; TEMP 36.6–37.7; O2SAT 94–96
[2016-07-09] MEDS: DIGOXIN 0.25 MG TAB PO SCH (05:23)
[2016-07-09] MEDS: POLYETHYLENE (MIRALAX) 17 GM PACK PO SCH ×3 (05:23→17:54)
[2016-07-09] MEDS: ACETAMINOPHEN IV 100 ML IV PRN ×2 (05:24→14:30)
[2016-07-09] MEDS ORDERED: NURSING VERBAL MED ORDER ONE (06:30)
[2016-07-09] MEDS: PANTOprazole SOD 40 MG TAB PO SCH (07:50)
[2016-07-09] MEDS: APIXABAN 2.5 MG TAB PO SCH ×2 (07:50→20:30)
[2016-07-09] MEDS: METOPROLOL TARTRATE 25 MG TAB PO SCH ×2 (07:50→20:30)
[2016-07-09] MEDS: OXYBUTYNIN CHLORIDE 5 MG TAB PO SCH (07:51)
[2016-07-09] MEDS: SERTRALINE HCL 50 MG TAB PO SCH (07:51)
--- NOTE | 2016-07-09 13:04 | CARDIOLOGY PROGRESS NOTE ---
DATE: 07/09/2016 SUBJECTIVE: Mrs. Lynch is resting comfortably in bed without complaints of chest pain, dyspnea, or palpitations. Her conversion to sinus rhythm yesterday was explained in detail. OBJECTIVE: VITAL SIGNS: Blood pressure is 150/70 with a regular pulse of 86, respiratory rate is 18. The patient is afebrile at 37.0 degrees Celsius. Saturations 95% on room air. NECK: Supple with full carotid upstrokes. There are no carotid bruits. Jugular venous pressure is flat at 90 degrees. There is no thyromegaly. CARDIOVASCULAR: Reveals a regular rhythm with a normal S1 and S2. Heart sounds are distant. No obvious murmurs. LUNGS: Clear without rales, rhonchi, or wheezes. ABDOMEN: Obese without bruits. EXTREMITIES: Reveal intact radial artery pulses bilaterally. There is no peripheral edema. DATA: CBC notes a hemoglobin of 10.3, hematocrit 30.8, white count 10.9, platelet count 175,000. Electrolytes note a sodium of 143, potassium 3.9, chloride 110, bicarbonate 25, BUN 14, creatinine 0.58, and glucose 128. fitter tacker notes sinus rhythm since 1:00 yesterday afternoon. There have been no pauses. IMPRESSION AND PLAN: 1. Paroxysmal atrial fibrillation - the patient has converted to sinus rhythm. No further pauses identified after her diltiazem was discontinued and metoprolol dosing adjusted. Currently, tolerating metoprolol tartrate 25 mg b.i.d., digoxin 0.25 mg daily, and abciximab 5 mg b.i.d. 2. Gastroesophageal reflux disease. 3. Depression. 4. Spinal stenosis - with radiculopathy the time. 5. History of peptic ulcer disease.
--- NOTE | 2016-07-09 15:55 | Hospitalist Progress Note ---
Hospitalist Progress Note Date of Service Jul 09, 2016. Subjective Pt evaluation today including: conversation w/ patient, physical exam, chart review, lab review, review of studies, review of inpatient medication list Patient had no acute issues overnight AMS has improved HR is controlled Constitutional: No fever Eyes: No worsening of vision ENT: No hearing loss Respiratory: No cough, No shortness of breath Cardiovascular: No chest pain Abdomen: No diarrhea, No pain, No vomiting Musculoskeletal: No joint pain Female : No dysuria Neurologic: No memory loss Psychiatric: No depression symptoms Heme: No abnormal bleeding/bruising Endo: No fatigue Skin: No rash Medications Current Inpatient Medications Medications (Trade) Dose Ordered Sig/Yuko Route Start Time Stop Time Status Last Admin Dose Admin Metoprolol Tartrate (Lopressor Tab) 25 mg BID PO 07/05/16 21:00 08/04/16 20:59 07/09/16 07:50 25 MG Oxybutynin Chloride (Ditropan Tab) 5 mg QAM PO 07/06/16 09:00 08/05/16 08:59 07/09/16 07:51 5 MG Sertraline HCl (Zoloft Tab) 25 mg QAM PO 07/06/16 09:00 08/05/16 08:59 07/09/16 07:51 25 MG Pantoprazole Sodium 40 mg 40 mg QAM PO 07/06/16 09:00 08/05/16 08:59 07/09/16 07:50 40 MG Promethazine HCl/ Sodium Chloride (Phenergan Inj/ Nss 50ml) 50.5 ml @ 202 mls/hr Q6H PRN IV 07/05/16 12:15 08/04/16 12:14 07/05/16 15:52 202 MLS/HR Ondansetron HCl (Zofran Inj) 4 mg Q6H PRN IV 07/05/16 12:15 08/04/16 12:14 07/05/16 13:48 4 MG Metoclopramide HCl (Reglan Inj) 10 mg Q6H PRN IV 07/05/16 12:15 08/04/16 12:14 Lorazepam 0.5 mg 0.5 mg Q8H PRN PO 07/05/16 12:15 08/04/16 12:14 Lorazepam/Syringe (Ativan Inj/ Syringe) 1 ml @ 1 mls/min Q8H PRN IV 07/05/16 12:15 08/04/16 12:14 Polyethylene (Miralax Powder Packet) 17 gm Q6 PO 07/07/16 06:00 08/06/16 05:59 07/09/16 05:23 17 GM Bisacodyl (Dulcolax Supp) 10 mg DAILY PRN [place] 07/05/16 12:15 08/04/16 12:14 Magnesium Hydroxide (Milk Of Magnesia Susp) 30 ml DAILY PRN PO 07/05/16 12:15 08/04/16 12:14 Hydromorphone HCl (Dilaudid Inj) 0.5-1mg prn moder... Q3H PRN IV 07/06/16 06:00 07/20/16 05:59 07/06/16 10:51 0.5 MG Oxycodone HCl 5-10mg prn moderate to sev... Q4H PRN PO 07/06/16 06:00 07/20/16 05:59 07/08/16 07:48 5 MG Acetaminophen (Ofirmev Iv) 100 ml @ 400 mls/hr Q8H PRN IV 07/05/16 12:15 08/04/16 12:14 07/09/16 05:24 400 MLS/HR Naloxone HCl (Narcan Inj) 0.1 mg Q5M PRN IV 07/05/16 12:15 08/04/16 12:14 Future hold Senna/Docusate Sodium (Senokot S Tab) 2 tab HS PO 07/05/16 21:00 08/04/16 20:59 07/08/16 21:40 2 TAB Sodium Biphosphate/ Sodium Phosphate (Fleet Enema) 132 ml ONE PRN [place] 07/05/16 12:15 08/04/16 12:14 Hydroxyzine HCl (Vistaril Tab) 25 mg Q8H PRN PO 07/05/16 12:15 08/04/16 12:14 Al Hydroxide/Mg Hydroxide (Maalox Susp) 30 ml Q6H PRN PO 07/05/16 12:15 08/04/16 12:14 Famotidine (Pepcid Tab) 20 mg Q12 PRN PO 07/05/16 12:15 08/04/16 12:14 Diphenhydramine HCl (Benadryl Cap) 25 mg Q6H PRN PO 07/05/16 12:15 08/04/16 12:14 Apixaban 5 mg 5 mg BID PO 07/07/16 21:00 08/06/16 20:59 07/09/16 07:50 5 MG Diltiazem HCl/ Dextrose (Cardizem Inj/D5 100ml) 125 ml @ 0 mls/hr Q0M PRN IV 07/08/16 05:00 08/07/16 04:59 07/08/16 05:23 5 MLS/HR Digoxin (Lanoxin Tab) 0.25 mg DAILY PO 07/10/16 09:00 08/09/16 08:59 Objective Vital Signs Date Time Temp Pulse Resp B/P Pulse Ox O2 Delivery O2 Flow Rate FiO2 07/09/16 12:34 37.3 68 16 146/71 96 Room Air 07/09/16 12:00 Room Air 07/09/16 08:04 37.0 86 18 150/70 95 07/09/16 08:00 Room Air 07/09/16 05:45 67 129/71 07/09/16 05:23 70 07/09/16 05:15 37.5 72 18 169/60 94 Room Air 07/09/16 04:00 Room Air 07/09/16 02:05 37.1 07/09/16 00:09 37.7 72 16 125/70 95 07/08/16 23:59 Room Air 07/08/16 23:11 68 07/08/16 20:00 Room Air 07/08/16 19:20 37.0 70 16 121/61 94 Room Air 07/08/16 18:21 80 07/08/16 16:06 37.0 76 16 113/68 95 07/08/16 16:05 Room Air Physical Exam General Appearance: WD/WN, no apparent distress Eyes: normal inspection ENT: normal ENT inspection Neck: supple, no adenopathy Respiratory/Chest: chest non-tender, lungs clear, normal breath sounds Cardiovascular: regular rate, rhythm, no edema Abdomen: normal bowel sounds, non tender, soft Extremities: normal range of motion, non-tender Neurologic/Psychiatric: heart specialist II-XII nml as tested, no motor/sensory deficits, alert, oriented x 3 Assessment and Plan Patient is a 76 year old female with a past medical history of Spinal Stenosis, Atrial fibrillation, GERD, PUD, Osteoporosis that is POD #0 for spinal surgery with Dr. Deshpande. This consultations is for medical management of the patient 1) POD #4 s/p Spinal Surgery - Pain control - d/c Morphine, Dilaudid 2/2 to AMS from excess narcotics - continue Roxicodone all PRN - Nausea - Zofran & Metoclopramaide PRN - Constipation - Mirilax, Ducolex, Senna, and Milk of Magnesia - PT/OT 2) Atrial Fibrillation with RVR - currently in the 80's in NSR - appreciate cardiology input - continue metoprolol 25 mg - continue digoxin - continue eliquis 3.)Bradycardia - suspect 2/2 to aggressive treatment of afibb - cont lopresor prn 4) Depression - Zoloft 25mg qAM 5) Overactive Bladder - Ditropan 5mg qAM 6) DVT Prophylaxis - eliquis Disposition- transfer to medical floor Stable for d/c home from hospitalist perspective
[2016-07-09] MEDS: DOCUSATE SODIUM/SENNA 50/8.6MG TAB PO SCH (20:30)
[2016-07-09] MEDS: OXYCODONE HCL IR 5 MG TAB (IMMEDIATE RELEASE) PO PRN (23:40)
[2016-07-10] MEDS: POLYETHYLENE (MIRALAX) 17 GM PACK PO SCH ×2 (00:01→05:36)
[2016-07-10 07:14] VITALS: BP 138/69; PULSE 70; TEMP 37.1; O2SAT 94
[2016-07-10] MEDS ORDERED: OXYC1TAB3 PO (07:37)
[2016-07-10] MEDS ORDERED: DIGOXIN 0.25 MG TAB PO SCH (09:00)
[2016-07-10] MEDS: APIXABAN 2.5 MG TAB PO SCH (09:05)
[2016-07-10] MEDS: OXYBUTYNIN CHLORIDE 5 MG TAB PO SCH (09:05)
[2016-07-10] MEDS: SERTRALINE HCL 50 MG TAB PO SCH (09:07)
[2016-07-10] MEDS: METOPROLOL TARTRATE 25 MG TAB PO SCH (09:08)
[2016-07-10] MEDS: PANTOprazole SOD 40 MG TAB PO SCH (09:08)
--- NOTE | 2016-07-10 10:31 | Hospitalist Progress Note ---
Hospitalist Progress Note Date of Service Jul 10, 2016. Subjective Pt evaluation today including: conversation w/ patient, physical exam, chart review, lab review, review of studies, review of inpatient medication list Patient had no acute issues overnight HR well controlled Constitutional: No fever Eyes: No worsening of vision ENT: No hearing loss Respiratory: No cough, No shortness of breath Cardiovascular: No chest pain Abdomen: No constipation, No pain, No vomiting Musculoskeletal: No joint pain Skin: No rash Medications Current Inpatient Medications Medications (Trade) Dose Ordered Sig/Yuko Route Start Time Stop Time Status Last Admin Dose Admin Metoprolol Tartrate (Lopressor Tab) 25 mg BID PO 07/05/16 21:00 08/04/16 20:59 07/10/16 09:08 25 MG Oxybutynin Chloride (Ditropan Tab) 5 mg QAM PO 07/06/16 09:00 08/05/16 08:59 07/10/16 09:05 5 MG Sertraline HCl (Zoloft Tab) 25 mg QAM PO 07/06/16 09:00 08/05/16 08:59 07/10/16 09:07 25 MG Pantoprazole Sodium 40 mg 40 mg QAM PO 07/06/16 09:00 08/05/16 08:59 07/10/16 09:08 40 MG Promethazine HCl/ Sodium Chloride (Phenergan Inj/ Nss 50ml) 50.5 ml @ 202 mls/hr Q6H PRN IV 07/05/16 12:15 08/04/16 12:14 07/05/16 15:52 202 MLS/HR Ondansetron HCl (Zofran Inj) 4 mg Q6H PRN IV 07/05/16 12:15 08/04/16 12:14 07/05/16 13:48 4 MG Metoclopramide HCl (Reglan Inj) 10 mg Q6H PRN IV 07/05/16 12:15 08/04/16 12:14 Lorazepam 0.5 mg 0.5 mg Q8H PRN PO 07/05/16 12:15 08/04/16 12:14 Lorazepam/Syringe (Ativan Inj/ Syringe) 1 ml @ 1 mls/min Q8H PRN IV 07/05/16 12:15 08/04/16 12:14 Polyethylene (Miralax Powder Packet) 17 gm Q6 PO 07/07/16 06:00 08/06/16 05:59 07/10/16 05:36 17 GM Bisacodyl (Dulcolax Supp) 10 mg DAILY PRN [place] 07/05/16 12:15 08/04/16 12:14 Magnesium Hydroxide (Milk Of Magnesia Susp) 30 ml DAILY PRN PO 07/05/16 12:15 08/04/16 12:14 Hydromorphone HCl (Dilaudid Inj) 0.5-1mg prn moder... Q3H PRN IV 07/06/16 06:00 07/20/16 05:59 07/06/16 10:51 0.5 MG Oxycodone HCl 5-10mg prn moderate to sev... Q4H PRN PO 07/06/16 06:00 07/20/16 05:59 07/09/16 23:40 5 MG Acetaminophen (Ofirmev Iv) 100 ml @ 400 mls/hr Q8H PRN IV 07/05/16 12:15 08/04/16 12:14 07/09/16 14:30 400 MLS/HR Naloxone HCl (Narcan Inj) 0.1 mg Q5M PRN IV 07/05/16 12:15 08/04/16 12:14 Future hold Senna/Docusate Sodium (Senokot S Tab) 2 tab HS PO 07/05/16 21:00 08/04/16 20:59 07/09/16 20:30 2 TAB Sodium Biphosphate/ Sodium Phosphate (Fleet Enema) 132 ml ONE PRN [place] 07/05/16 12:15 08/04/16 12:14 Hydroxyzine HCl (Vistaril Tab) 25 mg Q8H PRN PO 07/05/16 12:15 08/04/16 12:14 Al Hydroxide/Mg Hydroxide (Maalox Susp) 30 ml Q6H PRN PO 07/05/16 12:15 08/04/16 12:14 Famotidine (Pepcid Tab) 20 mg Q12 PRN PO 07/05/16 12:15 08/04/16 12:14 Diphenhydramine HCl (Benadryl Cap) 25 mg Q6H PRN PO 07/05/16 12:15 08/04/16 12:14 Apixaban 5 mg 5 mg BID PO 07/07/16 21:00 08/06/16 20:59 07/10/16 09:05 5 MG Diltiazem HCl/ Dextrose (Cardizem Inj/D5 100ml) 125 ml @ 0 mls/hr Q0M PRN IV 07/08/16 05:00 08/07/16 04:59 07/08/16 05:23 5 MLS/HR Digoxin (Lanoxin Tab) 0.25 mg DAILY PO 07/10/16 09:00 08/09/16 08:59 07/10/16 09:07 0.25 MG Objective Vital Signs Date Time Temp Pulse Resp B/P Pulse Ox O2 Delivery O2 Flow Rate FiO2 07/10/16 09:07 75 07/10/16 07:39 Room Air 07/10/16 07:14 37.1 70 18 138/69 94 Room Air 07/09/16 23:20 Room Air 07/09/16 23:15 36.6 64 18 101/63 95 07/09/16 16:00 Room Air 07/09/16 15:45 37.1 69 16 133/68 96 Room Air 07/09/16 12:34 37.3 68 16 146/71 96 Room Air 07/09/16 12:00 Room Air Physical Exam General Appearance: WD/WN Eyes: normal inspection ENT: normal ENT inspection Neck: supple Respiratory/Chest: chest non-tender, lungs clear Cardiovascular: regular rate, rhythm, no edema Abdomen: normal bowel sounds, non tender, soft Extremities: normal range of motion, non-tender Neurologic/Psychiatric: 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 Deshpande. This consultations is for medical management of the patient 1) POD #5 s/p Spinal Surgery - Pain control - d/c Morphine, Dilaudid 2/2 to AMS from excess narcotics - continue Roxicodone all PRN - Nausea - Zofran & Metoclopramaide PRN - Constipation - Mirilax, Ducolex, Senna, and Milk of Magnesia - PT/OT 2) Atrial Fibrillation with RVR - currently controlled in NSR - appreciate cardiology input - continue metoprolol 25 mg - continue digoxin - continue eliquis 3.)Bradycardia - suspect 2/2 to aggressive treatment of afibb - cont lopresor prn 4) Depression - Zoloft 25mg qAM 5) Overactive Bladder - Ditropan 5mg qAM 6) DVT Prophylaxis - eliquis Disposition- transfer to medical floor Stable for d/c home from hospitalist perspective
[2016-07-10 10:56] VITALS: BP 138/69; PULSE 75; TEMP 37.1; O2SAT 94
[2016-07-10] MEDS: OXYCODONE HCL IR 5 MG TAB (IMMEDIATE RELEASE) PO PRN (11:07)
--- NOTE | 2016-07-11 07:03 | PROGRESS NOTE ---
DATE: 07/09/2016 DATE: 07/09/2016. SUBJECTIVE: Ms. Lynch is here status post lumbar decompression and fusion. She had been doing well, was set to be discharged to home yesterday. Unfortunately, she had a bout of atrial fibrillation and is now on telemetry. She is a bit groggy this morning but not really having any significant pain. No pain down the legs, numbness or tingling. PHYSICAL EXAMINATION: VITAL SIGNS: She is afebrile. Vital signs are stable. Sensation is intact in lower extremities. Dorsiflexion, plantar flexion strength is 5/5 throughout. Dressing is clean, dry and intact. ABDOMEN: Calves are supple and nontender. ASSESSMENT: The patient is stable orthopedically. PLAN: At this point, there is nothing to add orthopedically. She needs to continue to ambulate with physical therapy to keep her strong. She has not yet had a bowel movement and her bowel regimen should be increased. She should continue to stand or walk. Management of her atrial fibrillation and anti coagulation will be deferred to medicine at this point. STEPHANIE
--- NOTE | 2016-08-02 14:06 | Discharge Summary ---
Orthopedic Discharge Summary Admission Date/Reason Jul 05, 2016 at 09:45 Lumbar Spinal Stenosis. Discharge Date/Disposition Jul 10, 2016 Home with services Diagnosis Principal Diagnosis: 1. stenosis 2. recurrent Afib with RVR Procedure(s) Performed L4-S1 decompression/fusion Consultations Hospitalists Cardiology Medication Reconciliation New Medications: Oxycodone Immediate Rel Tab (Roxicodone Ir) 5 Mg Tab 1-2 TAB PO Q4H PRN for Severe Pain, #90 TAB Continued Medications: Dexlansoprazole (Dexilant) 60 Mg Cap 60 MG PO QAM Metoprolol Tartrate (Lopressor) (Lopressor) 25 Mg Tab 25 MG PO BID, TAB Oxybutynin Chloride (Ditropan) 5 Mg Tab 5 MG PO QAM, TAB Sertraline Hcl (Zoloft) 25 Mg Tab 25 MG PO QAM for Anxiety, TAB Discontinued Medications: Apixaban (Eliquis) 5 Mg Tab 5 MG PO BID, TAB HOLD 48 HOURS PRIOR Admission Physical Exam As per Admitting History & Physical. Hospital Course She was admitted for elective lumbar surgery after clearance by outpatient cardiology for new onset Afib. She did well intially and progressed with PT, POD2 she developed recurrent afib with RVR. She was transferred to telemetry and cardiology was consulted. After medical therapy she converted back to sinus rhythm. She remained stable and had her pain controlled. After clearance from cards and hospitalists she was discharged home in stable condition. see chart for details Discharge Instructions Please refer to the electronic Patient Visit Report (Discharge Instructions) for additional information.
== END 2016-07-10 11:35 | disposition home health service (06) | DRG 460 ==
LOC: ENRESERVDT → ENRESERVTM → C.ACU 06:51 → C.3E 09:45 → C.2T 07-08 00:17 → C.MSW 07-09 16:56
PROVIDERS: ADMIT Orthopaedic Surgery Orthopaedic Surgery of the Spine; ATTEND Orthopaedic Surgery Orthopaedic Surgery of the Spine
PROC: 0SG00A1 (ICD-10-PCS; principal; 2016-07-05 10:00)
PROC: 01NB0ZZ Release Lumbar Nerve, Open Approach (ICD-10-PCS; principal; 2016-07-05 10:00)
PROC: 0SG30AJ Fusion of Lumbosacral Joint with Interbody Fusion Device, Posterior Approach, Anterior Column, Open Approach (ICD-10-PCS; principal; 2016-07-05 10:00)
PROC: 0SG307J Fusion of Lumbosacral Joint with Autologous Tissue Substitute, Posterior Approach, Anterior Column, Open Approach (ICD-10-PCS; principal; 2016-07-05 10:00)
PROC: 07DR3ZZ Extraction of Iliac Bone Marrow, Percutaneous Approach (ICD-10-PCS; principal; 2016-07-05 10:00)
PROC: 0SG0071 Fusion of Lumbar Vertebral Joint with Autologous Tissue Substitute, Posterior Approach, Posterior Column, Open Approach (ICD-10-PCS; principal; 2016-07-05 10:00)
PROC: 0ST20ZZ Resection of Lumbar Vertebral Disc, Open Approach (ICD-10-PCS; principal; 2016-07-05 10:00)
PROC: 3E0U0GB Introduction of Recombinant Bone Morphogenetic Protein into Joints, Open Approach (ICD-10-PCS; principal; 2016-07-05 10:00)
DX: M48.06 Spinal stenosis, lumbar region (principal); M43.17 Spondylolisthesis, lumbosacral region; R00.1 Bradycardia, unspecified; I49.5 Sick sinus syndrome; K21.9 Gastro-esophageal reflux disease without esophagitis; I48.0 Paroxysmal atrial fibrillation; M81.0 Age-related osteoporosis without current pathological fracture; K59.00 Constipation, unspecified; F32.9 Major depressive disorder, single episode, unspecified; N32.81 Overactive bladder; Z79.899 Other long term (current) drug therapy